=== PATIENT | female | born 1990 | race African-American/Black ===

== ENCOUNTER → 2016-10-19 | Outpatient (CLI) | payer MEDICAID ==
[2016-10-19 14:43] LABS: APPEARANCE,URINE CLEAR; BILIRUBIN,URINE NEGATIVE (NEGATIVE); GLUCOSE, URINE NEGATIVE (NEGATIVE); KETONES,URINE NEGATIVE (NEGATIVE); LEUKOCYTE ESTERASE,URINE NEGATIVE (NEGATIVE); NITRITE,URINE NEGATIVE (NEGATIVE); PROTEIN,URINE >=500 mg/dL (NEGATIVE); UROBILINOGEN,URINE NEGATIVE mg/dL (<2.0)
[2016-10-19 14:49] LABS: ABSOLUTE BASOPHILS # (AUTO) 0.1 10^3/uL (0.0-0.2); ABSOLUTE EOSINOPHILS # (AUTO) 0.4 10^3/uL (0.0-0.6); ABSOLUTE LYMPHOCYTES (AUTO) 2.7 10^3/uL (0.5-4.7); ABSOLUTE MONOCYTES (AUTO) 0.6 10^3/uL (0.1-1.4); BASOPHILS % (AUTO) 0.9 % (0-2); EOSINOPHILS % (AUTO) 4.1 % (0-6); HEMATOCRIT 32.7 % (36.0-47.0); HEMOGLOBIN 10.4 g/dL (12.0-15.5); HGB HCT DIFFERENCE -1.5; LYMPHOCYTES % (AUTO) 30.7 % (13-45); MEAN CORPUSCULAR HEMOGLOBIN 25.7 pg (27.0-33.4); MEAN CORPUSCULAR HGB CONC 31.9 g/dL (32.0-36.0); MEAN CORPUSCULAR VOLUME 81 fl (80-97); MONOCYTES % (AUTO) 7.4 % (3-13); RED BLOOD COUNT 4.06 10^6/uL (3.72-5.28); RED CELL DISTRIBUTION WIDTH 15.9 % (11.5-14.0); SEGMENTED NEUTROPHILS % (AUTO) 56.9 % (42-78); WHITE BLOOD COUNT 8.8 10^3/uL (4.0-10.5)
[2016-10-19 15:10] LABS: ALANINE AMINOTRANSFERASE 22 U/L (9-52); ALBUMIN 4.2 g/dL (3.5-5.0); ALKALINE PHOSPHATASE 127 U/L (38-126); ANION GAP 16 (5-19); ASPARTATE AMINO TRANSFERASE 17 U/L (14-36); BILIRUBIN,TOTAL 0.4 mg/dL (0.2-1.3); BLOOD UREA NITROGEN 27 mg/dL (7-20); CALCIUM 9.3 mg/dL (8.4-10.2); CARBON DIOXIDE 21 mmol/L (22-30); CHLORIDE 105 mmol/L (98-107); GLUCOSE 90 mg/dL (75-110); POTASSIUM 4.7 mmol/L (3.6-5.0); SODIUM 142.3 mmol/L (137-145); TOTAL PROTEIN 7.9 g/dL (6.3-8.2); URIC ACID 10.5 mg/dL (2.5-6.2)
[2016-10-19 15:46] LABS: FERRITIN 9.81 ng/mL (6.2-137.0)
== END ==
LOC: OD 13:17
PROVIDERS: ATTEND Internal Medicine Nephrology
DX: I12.9 Hypertensive chronic kidney disease with stage 1 through stage 4 chronic kidney disease, or unspecified chronic kidney disease (principal); N18.3 Chronic kidney disease, stage 3 (moderate); D64.9 Anemia, unspecified; R80.9 Proteinuria, unspecified
CPT/HCPCS: 36415; 80053; 81001; 82728; 83540; 83550; 84550; 85025; 86038

== ENCOUNTER 2017-04-08 19:37 | Inpatient (IN) | payer MEDICAID ==
[2017-04-08] MEDS ORDERED: LABETALOL HCL INJ 20 MG/4 ML DISP.SYRIN IV ONE ×3 (19:53→20:55)
[2017-04-08] MEDS ORDERED: NORMAL SALINE 1000 ML 1,000 ML IV ONE (19:54)
[2017-04-08] MEDS ORDERED: ONDANSETRON HCL INJ/PF 4 MG/2 ML SDV IV ONE (19:54)
--- NOTE | 2017-04-08 19:55 | ER Document Report ---
ED Cardiac - General Mode of Arrival: Medic Information source: Patient TRAVEL OUTSIDE OF THE [place] IN LAST 30 DAYS: No - HPI Patient complains to provider of: Chest pain Associated symptoms: Other - See above <CHRISTINE SO - Last Filed: 04/08/17 20:15> <JIGAR LEE - Last Filed: 04/08/17 21:41> - General Chief Complaint: Chest Pain Stated Complaint: CHEST PAIN Time Seen by Provider: 04/08/17 19:48 Notes: Patient is a 27 year old female, with a past medical history including hypertension, who presents to the emergency department via EMS complaining of chest pain onset yesterday. Patient reports the pain is more of a pressure and feels like "someone jumping on it". Patient also complains of shortness of breath and vomiting starting this morning around 1000. Patients blood pressure was at 218/104 in exam room and states that she does not take blood pressure medication. Patient's last menstrual cycle was March 18. (CHRISTINE SO) - Related Data Allergies/Adverse Reactions: No Known Allergies Allergy (Verified 07/08/15 11:17) Past Medical History - General Information source: Patient - Social History Smoking Status: Unknown if Ever Smoked Family History: Reviewed & Not Pertinent - Past Medical History Cardiac Medical History: Reports: Hx Hypertension Past Surgical History: Reports: Hx Section - x3 - Immunizations Hx Diphtheria, Pertussis, Tetanus Vaccination: Yes Hx Pneumococcal Vaccination: 09/30/00 <CHRISTINE SO - Last Filed: 04/08/17 20:15> Review of Systems - Review of Systems Constitutional: No symptoms reported EENT: No symptoms reported Cardiovascular: See HPI, Chest pain Respiratory: See HPI, Short of breath Gastrointestinal: See HPI, Vomiting Genitourinary: No symptoms reported Female Genitourinary: No symptoms reported Musculoskeletal: No symptoms reported Skin: No symptoms reported Hematologic/Lymphatic: No symptoms reported Neurological/Psychological: No symptoms reported -: Yes All other systems reviewed and negative <CHRISTINE SO - Last Filed: 04/08/17 20:15> Physical Exam - Vital signs Interpretation: Tachycardic - General General appearance: Appears well, Alert - HEENT Head: Normocephalic, Atraumatic Mucous membranes: Dry - Respiratory Respiratory status: No respiratory distress Chest status: Tender - anterior chest wall tender to palpate Breath sounds: Normal Chest palpation: Normal - Cardiovascular Rhythm: Tachycardia Heart sounds: Normal auscultation Murmur: No - Abdominal Inspection: Obese - Extremities General upper extremity: Normal inspection General lower extremity: Normal inspection - Neurological Neuro grossly intact: Yes Cognition: Normal Orientation: AAOx4 Jesús Coma Scale Eye Opening: Spontaneous Jesús Coma Scale Verbal: Oriented [place] Coma Scale Motor: Obeys Commands [place] Coma Scale Total: 15 Speech: Normal - Psychological Associated symptoms: Normal affect, Normal mood - Skin Skin Temperature: Warm Skin Moisture: Dry Skin Color: Normal <CHRISTINE SO - Last Filed: 04/08/17 20:15> Course - Laboratory Result Diagrams: 04/08/17 20:38 04/08/17 20:38 - EKG Interpretation by [place] EKG shows normal: Sinus rhythm, [place]. abnormal: Intervals - Prolonged QT interval, QRS Complexes, ST-T Waves - Abnormal lateral P waves Rate: Tachycardia - 116 Voltage: Consistant with LVH - Consults Dr. Vidales Time consulted: 21:35 Consulted provider: will come to ER <JIGAR LEE - Last Filed: 04/08/17 21:41> - Laboratory Laboratory results interpreted by me: 04/08/17 04/08/17 20:38 20:38 Hgb 11.0 L Hct 34.1 L MCH 26.2 L RDW 16.9 H Seg Neutrophils % 85.8 H Lymphocytes % 9.4 L Carbon Dioxide 21 L BUN 32 H Creatinine 3.74 H Est GFR ( Amer) 18 L Est GFR (Non-Af Amer) 15 L Glucose 120 H Total Protein 8.3 H Critical Care Note - Critical Care Note Total time excluding time spent on procedures (mins): 35 <JIGAR LEE - Last Filed: 04/08/17 21:41> Discharge <CHRISTINE SO - Last Filed: 04/08/17 20:15> - Discharge Admitting Provider: Hospitalist Unit Admitted: Telemetry <JIGAR LEE - Last Filed: 04/08/17 21:41> - Discharge Clinical Impression: Hypertensive urgency, Chest tightness or pressure Acute on chronic renal failure Qualifiers: Acute renal failure type: unspecified Chronic kidney disease stage: stage 4 ( severe) Qualified Code(s): N17.9 - Acute kidney failure, unspecified; N18.4 - Chronic kidney disease, stage 4 (severe) Nausea and vomiting Qualifiers: Vomiting type: unspecified Vomiting Intractability: non-intractable Qualified Code(s): R11.2 - Nausea with vomiting, unspecified Condition: Good Disposition: ADMITTED INPATIENT Scribe Attestation: 04/08/17 21:41 I personally performed the services described in the documentation, reviewed and edited the documentation which was dictated to the scribe in my presence, and it accurately records my words and actions. (JIGAR LEE) Scribe Documentation - Scribe Written by Laurae:: nataly Villasenor, 04/08/172014 acting as scribe for :: [place] <CHRISTINE SO - Last Filed: 04/08/17 20:15>
[2017-04-08 20:54] LABS: ABSOLUTE LYMPHOCYTES (AUTO) 0.8 10^3/uL (0.5-4.7); ABSOLUTE MONOCYTES (AUTO) 0.4 10^3/uL (0.1-1.4); ABSOLUTE NEUT (AUTO) 7.7 10^3/uL (1.7-8.2); BASOPHILS % (AUTO) 0.5 % (0-2); HEMATOCRIT 34.1 % (36.0-47.0); HGB HCT DIFFERENCE -1.1; LYMPHOCYTES % (AUTO) 9.4 % (13-45); MEAN CORPUSCULAR HEMOGLOBIN 26.2 pg (27.0-33.4); MEAN CORPUSCULAR HGB CONC 32.4 g/dL (32.0-36.0); MEAN CORPUSCULAR VOLUME 81 fl (80-97); MONOCYTES % (AUTO) 4.3 % (3-13); RED BLOOD COUNT 4.22 10^6/uL (3.72-5.28); RED CELL DISTRIBUTION WIDTH 16.9 % (11.5-14.0); SEGMENTED NEUTROPHILS % (AUTO) 85.8 % (42-78)
[2017-04-08 21:11] LABS: ALANINE AMINOTRANSFERASE 16 U/L (9-52); ALBUMIN 3.9 g/dL (3.5-5.0); ALKALINE PHOSPHATASE 117 U/L (38-126); ANION GAP 16 (5-19); ASPARTATE AMINO TRANSFERASE 19 U/L (14-36); BILIRUBIN,DIRECT 0.4 mg/dL (0.0-0.4); BILIRUBIN,TOTAL 0.5 mg/dL (0.2-1.3); BLOOD UREA NITROGEN 32 mg/dL (7-20); CARBON DIOXIDE 21 mmol/L (22-30); CHLORIDE 105 mmol/L (98-107); CREATINE KINASE 124 U/L (30-135); CREATININE RESULT 3.74 mg/dL (0.52-1.25); GLUCOSE 120 mg/dL (75-110); MAGNESIUM 2.1 mg/dL (1.6-2.3); POTASSIUM 3.6 mmol/L (3.6-5.0); SODIUM 141.8 mmol/L (137-145); TOTAL PROTEIN 8.3 g/dL (6.3-8.2)
[2017-04-08 21:22] LABS: CREATINE KINASE MB 1.33 ng/mL (<4.55)
[2017-04-08 21:26] LABS: TROPONIN I 0.153 ng/mL
[2017-04-08] MEDS ORDERED: HYDRALAZINE HCL INJ/PF 20 MG/1 ML SDV IV PRN (21:40)
[2017-04-08] MEDS ORDERED: AMLODIPINE BESYLATE 10 MG TABLET PO ONE (22:30)
[2017-04-08 22:45] LABS: APPEARANCE,URINE SLIGHTLY-CLOUDY; BILIRUBIN,URINE NEGATIVE (NEGATIVE); GLUCOSE, URINE NEGATIVE (NEGATIVE); KETONES,URINE NEGATIVE (NEGATIVE); LEUKOCYTE ESTERASE,URINE NEGATIVE (NEGATIVE); NITRITE,URINE NEGATIVE (NEGATIVE); PROTEIN,URINE >=500 mg/dL (NEGATIVE); UROBILINOGEN,URINE NEGATIVE mg/dL (<2.0)
[2017-04-08] MEDS ORDERED: HYDRALAZINE HCL 50 MG TABLET PO ONE (22:45)
[2017-04-08] MEDS ORDERED: HEPARIN SOD (PORCINE) 5,000 UNIT/ML 1 ML SYRINGE SUBCUT ONE (22:45)
[2017-04-08 22:58] LABS: URINE BARBITURATES SCREEN NEGATIVE; URINE METHADONE SCREEN NEGATIVE; URINE OPIATES LOW NEGATIVE; URINE PHENCYCLIDINE SCREEN NEGATIVE
--- NOTE | 2017-04-09 01:45 | RADIOLOGY REPORT (SQ) ---
EXAM DESCRIPTION: U/S LTD DUPLEX ART/BERNY FLOW COMPLETED DATE/TIME: 04/09/2017 1:06 am REASON FOR STUDY: renal dz w DAKOTAH ? COMPARISON: Ultrasound pelvis, 04/06/2016. TECHNIQUE: Realtime and static grayscale images acquired. Selected color Doppler, velocities and spe ctral images recorded. LIMITATIONS: None. FINDINGS: RIGHT KIDNEY: RENAL ARTERY VELOCITIES: 24 cm/sec. Segmental artery velocity 16 cm/sec. RENAL VEIN: Color doppler flow present, patent. VELOCITY RATIO: 0.3. Normal waveforms. KIDNEY: 8.3 cm. Echogenic kidneys. LEFT KIDNEY: RENAL ARTERY VELOCITIES: 35 cm/sec. Segmental artery velocity 31 cm/sec. RENAL VEIN: Color doppler flow present, patent. VELOCITY RATIO: 0.5. Normal waveforms. KIDNEY: 8.0 cm. Echogenic. IMPRESSION: Increased echogenicity of the kidneys which may indicate chronic medical renal disease. Otherwise, NO DOPPLER EVIDENCE OF HEMODYNAMICALLY SIGNIFICANT RENAL ARTERY STENOSIS. COMMENT: NORMAL RENAL ARTERY/AORTA VELOCITY RATIO IS LESS THAN OR EQUAL TO 3.5. TECHNICAL DOCUMENTATION: JOB ID: [id number]- All Rights Reserved
[2017-04-09 03:15] LABS: CREATINE KINASE MB 1.36 ng/mL (<4.55)
[2017-04-09 03:56] LABS: TROPONIN I 0.182 ng/mL
--- NOTE | 2017-04-09 04:02 | PDOC H&P ---
History of Present Illness Admission Date/PCP: 04/08/17 21:52 MARY ELLEN LAZCANO MD Patient complains of: Headache History of Present Illness: DANE MATTHEW is a 27 year old female with a past medical history of morbid obesity, chronic renal failure and severe hypertension. Patient presents after several hours of headache denying recent change in medications fever chills nausea vomiting. In the emergency room she is found to have a blood pressure of 250/158, acute on chronic renal failure, she started on hydralazine and referred to the hospitalist for admission Past Medical History Cardiac Medical History: Reports: Hypertension Endocrine Medical History: Denies: Diabetes Mellitus Type 2 Psychiatric Medical History: Denies: Depression Past Surgical History Past Surgical History: Reports: Section - x3 Social History Information Source: Patient, [facility] Records Smoking Status: Never Smoker Frequency of Alcohol Use: None Hx Recreational Drug Use: No Drugs: None Hx Prescription Drug Abuse: No - Advance Directive Resuscitation Status: Full Code Family History Family History: DM, Hypertension Parental Family History Reviewed: Yes Children Family History Reviewed: Yes Sibling(s) Family History Reviewed.: Yes Medication/Allergy Home Medications: Aspirin 81 mg PO DAILY 04/08/17 Hydralazine HCl 50 mg PO QID 04/08/17 Labetalol HCl 100 mg PO Q12H 04/08/17 Allergies/Adverse Reactions: No Known Allergies Allergy (Verified 07/08/15 11:17) Review of Systems Constitutional: ABSENT: chills, fever(s), headache(s), weight gain, weight loss Eyes: ABSENT: visual disturbances Ears: ABSENT: hearing changes Cardiovascular: ABSENT: chest pain, dyspnea on exertion, edema, orthropnea, palpitations Respiratory: ABSENT: cough, hemoptysis Gastrointestinal: ABSENT: abdominal pain, constipation, diarrhea, hematemesis, hematochezia, nausea, vomiting Genitourinary: ABSENT: dysuria, hematuria Musculoskeletal: ABSENT: joint swelling Integumentary: ABSENT: rash, wounds Neurological: ABSENT: abnormal gait, abnormal speech, confusion, dizziness, focal weakness, syncope Psychiatric: ABSENT: anxiety, depression, homidical ideation, suicidal ideation Endocrine: ABSENT: cold intolerance, heat intolerance, polydipsia, polyuria Hematologic/Lymphatic: ABSENT: easy bleeding, easy bruising Physical Exam Vital Signs: Temp Pulse Resp BP Pulse Ox 98.3 F 111 H 20 166/98 H 100 04/09/17 01:28 04/09/17 01:29 04/09/17 01:28 04/09/17 01:28 04/09/17 01:28 Intake & Output 04/07/17 04/08/17 04/09/17 11:59 11:59 11:59 Weight 83.6 kg General appearance: PRESENT: no acute distress, well-developed, well-nourished Head exam: PRESENT: atraumatic, normocephalic Eye exam: PRESENT: conjunctiva pink, EOMI, PERRLA. ABSENT: scleral icterus Ear exam: PRESENT: normal external ear exam Mouth exam: PRESENT: moist, tongue midline Neck exam: ABSENT: carotid bruit, JVD, lymphadenopathy, thyromegaly Respiratory exam: PRESENT: clear to auscultation [place]. ABSENT: rales, rhonchi, wheezes Cardiovascular exam: PRESENT: RRR. ABSENT: diastolic murmur, rubs, systolic murmur Pulses: PRESENT: normal dorsalis pedis pul Vascular exam: PRESENT: normal capillary refill GI/Abdominal exam: PRESENT: normal bowel sounds, soft. ABSENT: distended, guarding, mass, organolmegaly, rebound, tenderness Rectal exam: PRESENT: deferred Extremities exam: PRESENT: full ROM. ABSENT: calf tenderness, clubbing, pedal edema Neurological exam: PRESENT: alert, awake, oriented to person, oriented to place , oriented to time, oriented to situation, CN II-XII grossly intact. ABSENT: motor sensory deficit Psychiatric exam: PRESENT: appropriate affect, normal mood. ABSENT: homicidal ideation, suicidal ideation Skin exam: PRESENT: dry, intact, warm. ABSENT: cyanosis, rash Results Laboratory Results: 04/08/17 22:20 Urine Color YELLOW Urine Appearance SLIGHTLY-CLOUDY Urine pH 6.0 Ur Specific [place] 1.010 Urine Protein >=500 H Urine Glucose (UA) NEGATIVE Urine Ketones NEGATIVE Urine Blood NEGATIVE Urine Nitrite NEGATIVE Ur Leukocyte Esterase NEGATIVE Urine WBC (Auto) 2 Urine RBC (Auto) 1 04/09/17 02:41 Creatine Kinase 136 H Impressions: Vascular Ultrasound 04/09/17 00:00 IMPRESSION: Increased echogenicity of the kidneys which may indicate chronic medical renal disease. Otherwise, NO DOPPLER EVIDENCE OF HEMODYNAMICALLY SIGNIFICANT RENAL ARTERY STENOSIS. Assessment & Plan - Diagnosis (1) Hypertensive urgency Is this a current diagnosis for this admission?: YesPlan: Concern for secondary cause such as primary aldosteronism I will obtain a renal artery ultrasound, TSH and aldosterone rennin ratio, initiate hydralazine and Norvasc. I am unclear of the patient's medication and lifestyle compliance (3) Acute on chronic renal failure Qualifiers: Acute renal failure type: unspecified Chronic kidney disease stage: stage 4 (severe) Qualified Code(s): N17.9 - Acute kidney failure, unspecified; N18.9 - Chronic kidney disease, unspecified Is this a current diagnosis for this admission?: YesPlan: Markedly abrupt worsening likely secondary to uncontrolled hypertension renal artery ultrasound pending. Avoiding nephrotoxic meds and doses, gentle IV fluids and a nephrology consultation ordered. Follow-up chemistry and aldosterone rennin ratio - Time Time Spent: 30 to 50 Minutes - Inpatient Certification Medical Necessity: Need Close Monitoring Due to Risk of Patient Decompensation
[2017-04-09] MEDS ORDERED: ACETAMINOPHEN 325 MG TABLET ONE (04:46)
[2017-04-09] MEDS: HYDRALAZINE HCL 50 MG TABLET PO SCH ×3 (05:08→17:59)
[2017-04-09] MEDS: HEPARIN SOD (PORCINE) 5,000 UNIT/ML 1 ML SYRINGE SUBCUT SCH ×3 (05:09→22:26)
[2017-04-09] MEDS ORDERED: ACETAMINOPHEN 325 MG TABLET PO ONE (05:15)
[2017-04-09] MEDS ORDERED: ONDANSETRON HCL INJ/PF 4 MG/2 ML SDV IV PRN (06:17)
--- NOTE | 2017-04-09 07:54 | EKG REPORT ---
SEVERITY:- ABNORMAL ECG - SINUS TACHYCARDIA PROBABLE LEFT VENTRICULAR HYPERTROPHY ABNORMAL T, CONSIDER ISCHEMIA, LATERAL LEADS PROLONGED QT INTERVAL : Confirmed by: Harjinder Kirby MD 09-Apr-2017 07:53:02
[2017-04-09 08:40] LABS: ANION GAP 13 (5-19); BLOOD UREA NITROGEN 32 mg/dL (7-20); CARBON DIOXIDE 20 mmol/L (22-30); CHLORIDE 106 mmol/L (98-107); CHOLESTEROL 237.72 mg/dL (0-200); CREATINE KINASE 127 U/L (30-135); CREATININE RESULT 3.94 mg/dL (0.52-1.25); Direct HDL 63 mg/dL (>40); GLUCOSE 115 mg/dL (75-110); POTASSIUM 3.7 mmol/L (3.6-5.0); SODIUM 139.2 mmol/L (137-145); TRIGLYCERIDES 163 mg/dL (<150)
[2017-04-09 08:50] LABS: DIRECT LDL 140 mg/dL (<100)
[2017-04-09 08:51] LABS: CREATINE KINASE MB 1.94 ng/mL (<4.55); TROPONIN I 0.31 ng/mL
[2017-04-09 09:01] LABS: VLDL CHOLESTEROL 32.6 mg/dL (10-31)
[2017-04-09] MEDS: LABETALOL HCL 200 MG TABLET PO SCH ×2 (09:33→22:26)
[2017-04-09] MEDS: DOCUSATE SODIUM 100 MG CAPSULE PO SCH ×2 (09:34→17:59)
[2017-04-09] MEDS: ASPIRIN 81 MG TABLET, CHEWABLE PO SCH (09:34)
--- NOTE | 2017-04-09 12:35 | PDOC CONSULTATION ---
Consultation Consult Date: 04/09/17 Consult reason:: AK I. CKD stage 3/4. History of Present Illness Admission Date/PCP: 04/08/17 21:52 MARY ELLEN LAZCANO MD History of Present Illness: DANE MATTHEW is a 27 year old female with a past medical history of Chronic hypertension poorly controlled because of severe noncompliance, CKD stage III with base creatinine of between 2 and 3 was not being compliant with follow-ups with me in my office came to the hospital with several hours of headache , shortness of breath. The headache began actually on Saturday and was getting progressive she denies any history of drugs including cocaine. No c/o fever chills nausea vomiting. In the emergency room she is found to have a blood pressure of 250/158, acute on chronic renal failure, she started on hydralazine and Admitted. She has been put on antihypertensives and the blood pressure is a whole lot better. Along with that her symptoms are all resolving very well. She admits to noncompliance and feels rather guilty about this. She has a history of seeing her primary care at [facility] on a very rare basis. She has had issues with in the past during which I had seen her. She also noted to have proteinuria and has refused biopsy. She is a strong family history of hypertension CAD but no history of severe CKD or dialysis.She denies any history of . Her last menstrual period was on 18 March. Past Medical History Cardiac Medical History: Reports: Hypertension-primary Endocrine Medical History: Denies: Diabetes Mellitus Type 2 Renal/ Medical History: Reports: Proteinuria Psychiatric Medical History: Denies: Depression Past Surgical History Past Surgical History: Reports: Section - x3 Social History Smoking Status: Never Smoker Frequency of Alcohol Use: None Hx Recreational Drug Use: No Drugs: None Hx Prescription Drug Abuse: No - Advance Directive Resuscitation Status: Full Code Family History Parental Family History Reviewed: Yes - Positive for hypertension CAD. Negative for CKD/ESRD. Children Family History Reviewed: No Sibling(s) Family History Reviewed.: No Medication/Allergy Home Medications: No Home Medications 04/09/17 Allergies/Adverse Reactions: No Known Allergies Allergy (Verified 07/08/15 11:17) Review of Systems Review of Systems: Constitutional: [PRESENT: as per HPI. ABSENT: chills, fever(s), weight gain, weight loss] Eyes: [ABSENT: visual disturbances] Ears: [ABSENT: hearing changes] Cardiovascular: [ABSENT: edema, orthropnea, palpitations] Respiratory: [ABSENT: cough, hemoptysis] Gastrointestinal: [ABSENT: abdominal pain, constipation, diarrhea, hematemesis, hematochezia, nausea, vomiting] Genitourinary: [ABSENT: dysuria, hematuria] Musculoskeletal: [ABSENT: joint swelling] Integumentary: [ABSENT: rash, wounds] Neurological: [ABSENT: abnormal gait, abnormal speech, confusion, dizziness, focal weakness, syncope] Psychiatric: [ABSENT: anxiety, depression, homicidal ideation, suicidal ideation ] Endocrine: [ABSENT: cold intolerance, heat intolerance, polydipsia, polyuria] Hematologic/Lymphatic: [ABSENT: easy bleeding, easy bruising, lymphadenopathy] Constitutional: PRESENT: headache(s), weakness. ABSENT: anorexia, chills, fever (s) Nose, Mouth, and Throat: PRESENT: headache(s). ABSENT: mouth pain, sore throat Cardiovascular: PRESENT: chest pain, dyspnea on exertion. ABSENT: edema, orthropnea, palpitations Gastrointestinal: ABSENT: abdominal pain, constipation, diarrhea, dysphagia, hematemesis Genitourinary: ABSENT: difficulty urinating, dysuria, hematuria Neurological: ABSENT: abnormal movements, abnormal speech, confusion, focal weakness Endocrine: ABSENT: heat intolerance, menstrual abnormalities Hematologic/Lymphatic: ABSENT: easy bleeding, easy bruising, lymphadenopathy Physical Exam Vital Signs: Temp Pulse Resp BP Pulse Ox 98.3 F 96 16 143/80 H 100 04/09/17 11:37 04/09/17 11:37 04/09/17 11:37 04/09/17 11:37 04/09/17 11:37 Intake & Output 04/08/17 04/09/17 04/10/17 06:59 06:59 06:59 Intake Total 240 Output Total 0 Balance 240 Weight 83.6 kg General appearance: PRESENT: no acute distress Eye exam: PRESENT: conjunctiva pink, EOMI Ear exam: PRESENT: normal external ear exam. ABSENT: bleeding Mouth exam: PRESENT: moist. ABSENT: neck supple Neck exam: ABSENT: lymphadenopathy, meningismus, tenderness, thyromegaly, tracheal deviation Respiratory exam: PRESENT: clear to auscultation [place]. ABSENT: crackles, rhonchi Cardiovascular exam: PRESENT: +S1, +S2 GI/Abdominal exam: PRESENT: normal bowel sounds, soft. ABSENT: organomegaly, renal bruit, tenderness Extremities exam: ABSENT: pedal edema Neurological exam: PRESENT: alert, awake, oriented to person, oriented to place , oriented to time Skin exam: ABSENT: cyanosis, dry, erythema, mottled, rash Results Laboratory Results: 04/09/17 08:10 04/08/17 04/09/17 22:20 08:10 Sodium 139.2 Potassium 3.7 Chloride 106 Carbon Dioxide 20 L Anion Gap 13 BUN 32 H Creatinine 3.94 H Est GFR ( Amer) 17 L Est GFR (Non-Af Amer) 14 L Glucose 115 H Calcium 9.0 Triglycerides 163 H Cholesterol 237.72 H LDL Cholesterol Direct 140 H VLDL Cholesterol 32.6 H HDL Cholesterol 63 Urine Color YELLOW Urine Appearance SLIGHTLY-CLOUDY Urine pH 6.0 Ur Specific [place] 1.010 Urine Protein >=500 H Urine Glucose (UA) NEGATIVE Urine Ketones NEGATIVE Urine Blood NEGATIVE Urine Nitrite NEGATIVE Ur Leukocyte Esterase NEGATIVE Urine WBC (Auto) 2 Urine RBC (Auto) 1 04/09/17 04/09/17 04/09/17 02:41 02:41 08:10 Creatine Kinase 136 H 127 CK-MB (CK-2) 1.36 Troponin I 0.182 04/09/17 08:10 Creatine Kinase CK-MB (CK-2) 1.94 Troponin I 0.310 Impressions: Vascular Ultrasound 04/09/17 00:00 IMPRESSION: Increased echogenicity of the kidneys which may indicate chronic medical renal disease. Otherwise, NO DOPPLER EVIDENCE OF HEMODYNAMICALLY SIGNIFICANT RENAL ARTERY STENOSIS. Assessment & Plan - Diagnosis (1) DIANE (acute kidney injury) Plan: Patient has known to have CKD with a base creatinine between 2 and 3 and has been lost to follow-up in my office. She is extremely noncompliant with her medications in spite of the fact she is known to have hypertension for quite some time.Discussed the implications and consequences of uncontrolled hypertension including strokes heart attacks severe kidney failure and end- stage renal disease and dependent on dialysis.Current status is is likely from her advancing CKD from her uncontrolled hypertension. Currently she is not showing any evidences of uremia or acute indications for renal replacements. Once she has a blood pressure control she has to be discharged and then follow- up with me as an outpatient to see when and how she will need to be going on dialysis. (2) Chronic renal disease, stage IV Plan: Known CKD with a base creatinine between 2 and 3. Unfortunately severe noncompliance and issues with taking medications to control her blood pressure. Her present status could be acute or it could be a progress he was CKD stage III going into for. No indications for renal replacements. Needs to follow-up as an outpatient (3) Chest tightness or pressure Plan: As per hospitalist. She might need risk stratification (4) Hypertensive urgency Is this a current diagnosis for this admission?: YesPlan: Under better control now on current medications. She states she has been on hydralazine and labetalol but has not been taking it for quite some time. Obviously that explains many of present situation. (5) Nausea and vomiting Qualifiers: Vomiting type: unspecified Vomiting Intractability: non-intractable Qualified Code(s): R11.2 - Nausea with vomiting, unspecified
--- NOTE | 2017-04-09 13:50 | PDOC PROGRESS REPORT ---
Subjective Progress Note for:: 04/09/17 Subjective:: Patient has no new complaints. She feels generally better than she did on admission. She still has some chest pressure. Patient denies fever, chills, headache, new focal weakness, shortness of breath, abdominal pain, nausea, vomiting, diarrhea, constipation. Physical Exam Vital Signs: Temp Pulse Resp BP Pulse Ox 98.3 F 96 16 143/80 H 100 04/09/17 11:37 04/09/17 11:37 04/09/17 11:37 04/09/17 11:37 04/09/17 11:37 Intake & Output 04/08/17 04/09/17 04/10/17 06:59 06:59 06:59 Intake Total 240 Output Total 0 Balance 240 Weight 83.6 kg GENERAL: No acute distress HEENT: Conjunctiva clear, nonicteric, moist mucous membranes, no JVD, midline trachea RESPIRATORY: Clear to auscultation bilaterally, no wheezes, no rhonchi CARDIAC: Regular rate and rhythm, no murmurs/gallops/rubs ABDOMEN: Soft, nondistended, nontender, positive bowel sounds, no rebound, no guarding EXTREMETIES: No edema, cyanosis, clubbing NEUROLOGIC: Alert, oriented to person/place/time, CN's grossly intact, no focal deficits SKIN: No rash, wounds PSYCH: Normal mood, normal affect Results Laboratory Results: 04/09/17 08:10 04/08/17 04/09/17 22:20 08:10 Sodium 139.2 Potassium 3.7 Chloride 106 Carbon Dioxide 20 L Anion Gap 13 BUN 32 H Creatinine 3.94 H Est GFR ( Amer) 17 L Est GFR (Non-Af Amer) 14 L Glucose 115 H Calcium 9.0 Triglycerides 163 H Cholesterol 237.72 H LDL Cholesterol Direct 140 H VLDL Cholesterol 32.6 H HDL Cholesterol 63 Urine Color YELLOW Urine Appearance SLIGHTLY-CLOUDY Urine pH 6.0 Ur Specific [place] 1.010 Urine Protein >=500 H Urine Glucose (UA) NEGATIVE Urine Ketones NEGATIVE Urine Blood NEGATIVE Urine Nitrite NEGATIVE Ur Leukocyte Esterase NEGATIVE Urine WBC (Auto) 2 Urine RBC (Auto) 1 04/09/17 04/09/17 04/09/17 02:41 02:41 08:10 Creatine Kinase 136 H 127 CK-MB (CK-2) 1.36 Troponin I 0.182 04/09/17 08:10 Creatine Kinase CK-MB (CK-2) 1.94 Troponin I 0.310 Impressions: Vascular Ultrasound 04/09/17 00:00 IMPRESSION: Increased echogenicity of the kidneys which may indicate chronic medical renal disease. Otherwise, NO DOPPLER EVIDENCE OF HEMODYNAMICALLY SIGNIFICANT RENAL ARTERY STENOSIS. Assessment & Plan - Diagnosis (1) Hypertensive urgency Is this a current diagnosis for this admission?: YesPlan: Patient apparently has not had medication filled in about 1 year. She has been started back on oral labetalol and oral hydralazine. As needed IV hydralazine also ordered. She is being followed by Dr. Mcgrath of nephrology for this as well as chronic kidney disease stage IV. (2) Hypercholesterolemia Is this a current diagnosis for this admission?: YesPlan: Start Lipitor 20 mg nightly. (3) Acute on chronic renal failure Qualifiers: Acute renal failure type: unspecified Chronic kidney disease stage: stage 4 (severe) Qualified Code(s): N17.9 - Acute kidney failure, unspecified; N18.9 - Chronic kidney disease, unspecified Is this a current diagnosis for this admission?: Yes (4) Chronic renal disease, stage IV Is this a current diagnosis for this admission?: Yes (5) Chest tightness or pressure Is this a current diagnosis for this admission?: YesPlan: Likely secondary to uncontrolled hypertension. Troponin slightly elevated however I think this is more related also to uncontrolled hypertension and chronic kidney disease stage IV. (6) Noncompliance Is this a current diagnosis for this admission?: YesPlan: I have talked to patient at length today regarding complaint with antihypertensive regimen given the fact that she has progressed now to stage IV chronic kidney disease will likely progress further to hemodialysis range. I have advised her that this progression can be slowed by maintaining good control of her blood pressure. She acknowledges understanding. - Time Time Spent with patient: 35 or more minutes Anticipated discharge: Home Within: within 24 hours
[2017-04-09 15:55] LABS: CREATINE KINASE MB 2.68 ng/mL (<4.55); TROPONIN I 0.824 ng/mL
[2017-04-09] MEDS: ACETAMINOPHEN 325 MG TABLET PO PRN (16:11)
[2017-04-09] MEDS: BUTALB/ACETAMINOPHEN/CAFFEINE 1 TAB EACH PO PRN (18:52)
[2017-04-09] MEDS: ATORVASTATIN CALCIUM 20 MG TABLET PO SCH (22:25)
[2017-04-10] MEDS: HYDRALAZINE HCL 50 MG TABLET PO SCH ×4 (01:12→22:02)
[2017-04-10] MEDS: HEPARIN SOD (PORCINE) 5,000 UNIT/ML 1 ML SYRINGE SUBCUT SCH ×3 (05:49→21:59)
[2017-04-10 06:00] LABS: ANION GAP 12 (5-19); BLOOD UREA NITROGEN 33 mg/dL (7-20); CALCIUM 8.8 mg/dL (8.4-10.2); CARBON DIOXIDE 21 mmol/L (22-30); CHLORIDE 105 mmol/L (98-107); CREATININE RESULT 4.29 mg/dL (0.52-1.25); GLUCOSE 92 mg/dL (75-110); POTASSIUM 3.8 mmol/L (3.6-5.0); SODIUM 137.8 mmol/L (137-145)
[2017-04-10] MEDS: ACETAMINOPHEN 325 MG TABLET PO PRN (08:30)
--- NOTE | 2017-04-10 09:38 | PDOC PROGRESS REPORT ---
Subjective Progress Note for:: 04/10/17 Subjective:: Patient has no new complaints. She feels generally better than she did on admission. Chest pressure has resolved. Patient denies fever, chills, headache , new focal weakness, shortness of breath, abdominal pain, nausea, vomiting, diarrhea, constipation. Physical Exam Vital Signs: Temp Pulse Resp BP Pulse Ox 98.4 F 106 H 16 168/95 H 100 04/10/17 07:49 04/10/17 07:49 04/10/17 07:49 04/10/17 07:49 04/10/17 07:49 Intake & Output 04/09/17 04/10/17 04/11/17 06:59 06:59 06:59 Intake Total 240 885 Output Total 0 500 Balance 240 385 Weight 83.6 kg 87 kg GENERAL: No acute distress HEENT: Conjunctiva clear, nonicteric, moist mucous membranes, no JVD, midline trachea RESPIRATORY: Clear to auscultation bilaterally, no wheezes, no rhonchi CARDIAC: Regular rate and rhythm, no murmurs/gallops/rubs ABDOMEN: Soft, nondistended, nontender, positive bowel sounds, no rebound, no guarding EXTREMETIES: No edema, cyanosis, clubbing NEUROLOGIC: Alert, oriented to person/place/time, CN's grossly intact, no focal deficits SKIN: No rash, wounds PSYCH: Normal mood, normal affect Results Laboratory Results: 04/10/17 04:51 04/10/17 04:51 Sodium 137.8 Potassium 3.8 Chloride 105 Carbon Dioxide 21 L Anion Gap 12 BUN 33 H Creatinine 4.29 H Est GFR ( Amer) 15 L Est GFR (Non-Af Amer) 12 L Glucose 92 Calcium 8.8 04/09/17 04/09/17 04/09/17 02:41 02:41 08:10 Creatine Kinase 136 H 127 CK-MB (CK-2) 1.36 Troponin I 0.182 04/09/17 04/09/17 04/09/17 08:10 14:53 14:53 Creatine Kinase 119 CK-MB (CK-2) 1.94 2.68 Troponin I 0.310 0.824 Impressions: Vascular Ultrasound 04/09/17 00:00 IMPRESSION: Increased echogenicity of the kidneys which may indicate chronic medical renal disease. Otherwise, NO DOPPLER EVIDENCE OF HEMODYNAMICALLY SIGNIFICANT RENAL ARTERY STENOSIS. Assessment & Plan - Diagnosis (1) Hypertensive urgency Is this a current diagnosis for this admission?: YesPlan: Patient apparently has not had medication filled in about 1 year. Continue labetalol 200 mg twice daily. Decrease hydralazine to 50 mg every 8 hours. Start Norvasc 5 mg daily. As needed IV hydralazine also ordered. Check 24 hour urine metanephrine and catecholamine level. Renal artery ultrasound negative for renal artery stenosis. She is being followed by Dr. Mcgrath of nephrology for this as well as chronic kidney disease stage IV. (2) Hypercholesterolemia Is this a current diagnosis for this admission?: YesPlan: Started Lipitor 20 mg nightly. (3) Acute on chronic renal failure Qualifiers: Acute renal failure type: unspecified Chronic kidney disease stage: stage 4 (severe) Qualified Code(s): N17.9 - Acute kidney failure, unspecified; N18.9 - Chronic kidney disease, unspecified Is this a current diagnosis for this admission?: YesPlan: Dr. Mcgrath of nephrology following. He is advised to follow-up as an outpatient in 2 weeks. Patient needs strict control of hypertension to slow further progression of chronic kidney disease. (4) Chronic renal disease, stage IV Is this a current diagnosis for this admission?: Yes (5) Chest tightness or pressure Is this a current diagnosis for this admission?: YesPlan: Case discussed with Dr. Rios of cardiology. Elevated troponin likely a result of uncontrolled hypertension and advanced chronic kidney disease. CK levels normal. Patient now asymptomatic once blood pressure has been controlled. Dr. Rios did recommend checking echocardiogram. He did not think stress test was warranted. (6) Noncompliance Is this a current diagnosis for this admission?: Yes - Time Time Spent with patient: 35 or more minutes Anticipated discharge: Home Within: within 24 hours
[2017-04-10] MEDS ORDERED: AMLODIPINE BESYLATE 5 MG TABLET PO SCH (10:00)
[2017-04-10] MEDS: ASPIRIN 81 MG TABLET, CHEWABLE PO SCH (10:48)
[2017-04-10] MEDS: DOCUSATE SODIUM 100 MG CAPSULE PO SCH ×2 (10:48→18:09)
[2017-04-10] MEDS: BUTALB/ACETAMINOPHEN/CAFFEINE 1 TAB EACH PO PRN ×2 (10:49→22:02)
[2017-04-10] MEDS: LABETALOL HCL 200 MG TABLET PO SCH ×2 (10:51→22:02)
--- NOTE | 2017-04-10 13:57 | XCELERA REPORT ---
[address] [address] Transthoracic Echocardiogram Report Name: DANE MATTHEW Age: 27 yrs Gender: Female : 1990 Patient Status: Inpatient Patient Location: [id number] Study Date: 04/10/2017 11:11 AM Height: 65 in Weight: 191 lb BSA: 1.9 m2 Procedure: A two-dimensional transthoracic echocardiogram with color flow and Doppler was performed. Study Quality: Fair. Reason For Study: CHEST PAIN / HYPERTENSION History: Chest pain. HTN. Ordering Physician: DANIELLE FENTON Performed By: Lakia Cristobal Interpretation Summary The left ventricle is normal in size. There is moderate concentric left ventricular hypertrophy. LV EF is 60% Left ventricular systolic function is normal. Doppler measurements suggest normal left ventricular diastolic function The left ventricular wall motion is normal. The right ventricle is normal in size and function. The left atrium is mildly dilated. The interatrial septum is intact with no evidence for an atrial septal defect. There is no evidence of mitral valve prolapse. There is no vegetation seen on the mitral valve. There is no mitral valve stenosis. There is a trace amount of mitral regurgitation There is no aortic valve stenosis There is no LVOT obstruction. No aortic regurgitation is present. There is no tricuspid stenosis. There is a trace amount of tricuspid regurgitation Unable to calculate RVSP due to insufficient TR jet. There is no pericardial effusion. MMode/2D Measurements \T\ Calculations RVDd: 2.4 cm LVIDd: 5.0 cmFS: 26.6 % Ao root diam: 2.7 cm IVSd: 1.5 cm LVIDs: 3.7 cmEDV(Teich): 119.1 ml LVPWd: 1.7 cmESV(Teich): 57.5 ml Ao root area: 5.9 cm2 EF(Teich): 51.7 % LVOT diam: 2.0 cm LVOT area: 3.3 cm2 Doppler Measurements \T\ Calculations MV E max dominga: MV dec slope: Ao V2 max: LV V1 max P.4 cm/sec 493.9 cm/sec2 159.0 cm/sec 4.8 mmHg MV A max dominga: MV dec time: Ao max PG: LV V1 max: 85.5 cm/sec 0.24 sec 10.1 mmHg 109.5 cm/sec MV E/A: 1.4 JIM(V,D): 2.3 cm2 PA V2 max: 100.5 cm/sec PA max P.0 mmHg Left Ventricle The left ventricle is normal in size. There is moderate concentric left ventricular hypertrophy. LV EF is 60%. Left ventricular systolic function is normal. Doppler measurements suggest normal left ventricular diastolic function. The left ventricular wall motion is normal. There is no thrombus. There is no ventricular septal defect visualized. Right Ventricle The right ventricle is normal in size and function. Atria The right atrium is normal. The left atrium is mildly dilated. The interatrial septum is intact with no evidence for an atrial septal defect. Mitral Valve There is no evidence of mitral valve prolapse. There is no vegetation seen on the mitral valve. There is no mitral valve stenosis. There is a trace amount of mitral regurgitation. Aortic Valve There is no aortic valvular vegetation. There is no aortic valve stenosis. There is no LVOT obstruction. No aortic regurgitation is present. Tricuspid Valve There is no tricuspid stenosis. There is a trace amount of tricuspid regurgitation. Unable to calculate RVSP due to insufficient TR jet. Pulmonic Valve There is no pulmonic valvular stenosis. There is no pulmonic valvular regurgitation. Great Vessels The aortic root is normal size. Effusions There is no pericardial effusion. : DANIELLE FENTON Lakshmi
--- NOTE | 2017-04-10 15:48 | PDOC PROGRESS REPORT ---
Subjective Progress Note for:: 04/10/17 Subjective:: Saw the patient this morning. She is denying any chest pain shortness of breath. No headaches. Physical Exam Vital Signs: Temp Pulse Resp BP Pulse Ox 98.5 F 93 16 171/106 H 100 04/10/17 11:06 04/10/17 11:06 04/10/17 11:06 04/10/17 11:06 04/10/17 11:06 Intake & Output 04/09/17 04/10/17 04/11/17 06:59 06:59 06:59 Intake Total 240 885 Output Total 0 500 Balance 240 385 Weight 83.6 kg 87 kg General appearance: PRESENT: no acute distress Respiratory exam: PRESENT: clear to auscultation [place]. ABSENT: crackles, rhonchi Cardiovascular exam: PRESENT: +S1, +S2 GI/Abdominal exam: PRESENT: normal bowel sounds, soft. ABSENT: organomegaly, renal bruit, tenderness Results Laboratory Results: 04/10/17 04:51 04/10/17 04:51 Sodium 137.8 Potassium 3.8 Chloride 105 Carbon Dioxide 21 L Anion Gap 12 BUN 33 H Creatinine 4.29 H Est GFR ( Amer) 15 L Est GFR (Non-Af Amer) 12 L Glucose 92 Calcium 8.8 04/09/17 04/09/17 04/09/17 02:41 02:41 08:10 Creatine Kinase 136 H 127 CK-MB (CK-2) 1.36 Troponin I 0.182 04/09/17 04/09/17 04/09/17 08:10 14:53 14:53 Creatine Kinase 119 CK-MB (CK-2) 1.94 2.68 Troponin I 0.310 0.824 Impressions: Vascular Ultrasound 04/09/17 00:00 IMPRESSION: Increased echogenicity of the kidneys which may indicate chronic medical renal disease. Otherwise, NO DOPPLER EVIDENCE OF HEMODYNAMICALLY SIGNIFICANT RENAL ARTERY STENOSIS. Assessment & Plan - Diagnosis (1) DIANE (acute kidney injury) Plan: Relatively stable. She definitely has hypertensive nephropathy and needs to closely watch as an outpatient. Advised patient to follow-up with me in my office in 2 weeks time with him basic chemistries (2) Chronic renal disease, stage IV Is this a current diagnosis for this admission?: Yes (3) Chest tightness or pressure Is this a current diagnosis for this admission?: Yes (4) Hypertensive urgency Is this a current diagnosis for this admission?: YesPlan: Resolved. Blood pressures are more stable. I would not try to get her blood pressure much more regulated until over the period of time. Advised the patient to follow-up with me as an outpatient as mentioned earlier. (5) Nausea and vomiting Qualifiers: Vomiting type: unspecified Vomiting Intractability: non-intractable Qualified Code(s): R11.2 - Nausea with vomiting, unspecified
[2017-04-10] MEDS: ATORVASTATIN CALCIUM 20 MG TABLET PO SCH (22:02)
[2017-04-11] MEDS: BUTALB/ACETAMINOPHEN/CAFFEINE 1 TAB EACH PO PRN ×2 (04:52→22:01)
[2017-04-11 05:19] LABS: ANION GAP 11 (5-19); BLOOD UREA NITROGEN 35 mg/dL (7-20); CALCIUM 8.8 mg/dL (8.4-10.2); CARBON DIOXIDE 22 mmol/L (22-30); CHLORIDE 104 mmol/L (98-107); CREATININE RESULT 4.33 mg/dL (0.52-1.25); GLUCOSE 87 mg/dL (75-110); POTASSIUM 3.7 mmol/L (3.6-5.0); SODIUM 137.3 mmol/L (137-145)
[2017-04-11] MEDS: HEPARIN SOD (PORCINE) 5,000 UNIT/ML 1 ML SYRINGE SUBCUT SCH ×3 (05:34→22:03)
[2017-04-11] MEDS: HYDRALAZINE HCL 50 MG TABLET PO SCH (05:35)
[2017-04-11] MEDS: DOCUSATE SODIUM 100 MG CAPSULE PO SCH ×2 (10:18→17:38)
[2017-04-11] MEDS: ASPIRIN 81 MG TABLET, CHEWABLE PO SCH (10:19)
[2017-04-11] MEDS: AMLODIPINE BESYLATE 10 MG TABLET PO SCH (10:19)
[2017-04-11] MEDS: CLONIDINE HCL 0.1 MG TABLET PO SCH ×2 (10:20→22:01)
[2017-04-11] MEDS: LABETALOL HCL 200 MG TABLET PO SCH ×2 (10:23→22:03)
[2017-04-11] MEDS ORDERED: LORAZEPAM 1 MG TABLET PO PRN ×2 (13:06→14:04)
--- NOTE | 2017-04-11 15:33 | PDOC PROGRESS REPORT ---
Subjective Progress Note for:: 04/11/17 Subjective:: Patient has continued uncontrolled hypertension. She has associated headaches. She is inquiring about going home but I have advised her that it currently is not safe. He denies focal weakness or numbness. She denies chest pain or shortness of breath. Physical Exam Vital Signs: Temp Pulse Resp BP Pulse Ox 98.8 F 101 H 16 172/102 H 100 04/11/17 07:57 04/11/17 07:57 04/11/17 07:57 04/11/17 07:57 04/11/17 07:57 Intake & Output 04/10/17 04/11/17 04/12/17 06:59 06:59 06:59 Intake Total 885 1119 Output Total 500 1000 Balance 385 119 Weight 87 kg 87.6 kg GENERAL: No acute distress HEENT: Conjunctiva clear, nonicteric, moist mucous membranes, no JVD, midline trachea RESPIRATORY: Clear to auscultation bilaterally, no wheezes, no rhonchi CARDIAC: Regular rate and rhythm, no murmurs/gallops/rubs ABDOMEN: Soft, nondistended, nontender, positive bowel sounds, no rebound, no guarding EXTREMETIES: No edema, cyanosis, clubbing NEUROLOGIC: Alert, oriented to person/place/time, CN's grossly intact, no focal deficits SKIN: No rash, wounds PSYCH: Normal mood, normal affect Results Laboratory Results: 04/11/17 04:33 04/11/17 04:33 Sodium 137.3 Potassium 3.7 Chloride 104 Carbon Dioxide 22 Anion Gap 11 BUN 35 H Creatinine 4.33 H Est GFR ( Amer) 15 L Est GFR (Non-Af Amer) 12 L Glucose 87 Calcium 8.8 04/09/17 04/09/17 04/09/17 02:41 02:41 08:10 Creatine Kinase 136 H 127 CK-MB (CK-2) 1.36 Troponin I 0.182 04/09/17 04/09/17 04/09/17 08:10 14:53 14:53 Creatine Kinase 119 CK-MB (CK-2) 1.94 2.68 Troponin I 0.310 0.824 Impressions: Vascular Ultrasound 04/09/17 00:00 IMPRESSION: Increased echogenicity of the kidneys which may indicate chronic medical renal disease. Otherwise, NO DOPPLER EVIDENCE OF HEMODYNAMICALLY SIGNIFICANT RENAL ARTERY STENOSIS. Assessment & Plan - Diagnosis (1) Hypertensive urgency Is this a current diagnosis for this admission?: YesPlan: Patient apparently has not had medication filled in about 1 year. Continue labetalol 200 mg twice daily. Discontinue hydralazine. Increase Norvasc to 10 mg daily. Start clonidine 0.1 mg twice daily. As needed IV hydralazine also ordered. Check 24 hour urine metanephrine and catecholamine level. Renal artery ultrasound negative for renal artery stenosis. She is being followed by Dr. Mcgrath of nephrology for this as well as chronic kidney disease stage IV. (2) Hypercholesterolemia Is this a current diagnosis for this admission?: YesPlan: Started Lipitor 20 mg nightly. (3) Acute on chronic renal failure Qualifiers: Acute renal failure type: unspecified Chronic kidney disease stage: stage 4 (severe) Qualified Code(s): N17.9 - Acute kidney failure, unspecified; N18.9 - Chronic kidney disease, unspecified Is this a current diagnosis for this admission?: Yes (4) Chronic renal disease, stage IV Is this a current diagnosis for this admission?: YesPlan: Dr. Mcgrath of nephrology following. Patient will need to follow-up with nephrology as an outpatient. (5) Chest tightness or pressure Is this a current diagnosis for this admission?: Yes (6) Noncompliance Is this a current diagnosis for this admission?: Yes - Time Time Spent with patient: 25-34 minutes
[2017-04-11] MEDS: ATORVASTATIN CALCIUM 20 MG TABLET PO SCH (22:01)
[2017-04-12] MEDS: HEPARIN SOD (PORCINE) 5,000 UNIT/ML 1 ML SYRINGE SUBCUT SCH (05:07)
[2017-04-12 05:22] LABS: ANION GAP 11 (5-19); BLOOD UREA NITROGEN 37 mg/dL (7-20); CALCIUM 8.7 mg/dL (8.4-10.2); CARBON DIOXIDE 22 mmol/L (22-30); CHLORIDE 104 mmol/L (98-107); CREATININE RESULT 4.23 mg/dL (0.52-1.25); GLUCOSE 84 mg/dL (75-110); POTASSIUM 4.1 mmol/L (3.6-5.0); SODIUM 137.1 mmol/L (137-145)
--- NOTE | 2017-04-12 08:52 | PDOC DISCHARGE SUMMARY ---
General - Admit/Disc Date/PCP Admission Date/Primary Care Provider: 04/08/17 21:52 MARY ELLEN LAZCANO MD Discharge Date: 04/12/17 - Discharge Diagnosis (1) Hypertensive urgency Is this a current diagnosis for this admission?: Yes (2) Chronic renal disease, stage IV Is this a current diagnosis for this admission?: Yes (3) Hypercholesterolemia Is this a current diagnosis for this admission?: Yes (4) Chest tightness or pressure Is this a current diagnosis for this admission?: Yes (5) Noncompliance Is this a current diagnosis for this admission?: Yes - Additional Information Resuscitation Status: Full Code Discharge Diet: Other (Comments) - dialysis Discharge Activity: Activity As Tolerated Home Medications: Amlodipine Besylate [Norvasc 10 mg Tablet] 10 mg PO DAILY #30 tablet 04/12/17 Atorvastatin Calcium [Lipitor 20 mg Tablet] 20 mg PO QHS #30 tablet 04/12/17 Butalb/Acetaminophen/Caffeine [Fioricet (50-325-40 mg) Tablet] 2 tab PO Q6HP PRN #10 each 04/12/17 Clonidine HCl [Catapres 0.1 mg Tablet] 0.1 mg PO Q12 #60 tablet 04/12/17 Labetalol HCl 100 mg PO BID #60 tablet 04/12/17 Lorazepam [Ativan 1 mg Tablet] 1 mg PO Q8HP PRN #30 tablet 04/12/17 History of Present Illness Patient complains of: Headache History of Present Illness: DANE MATTHEW is a 27 year old female with a past medical history of morbid obesity, chronic renal failure and severe hypertension. Patient presents after several hours of headache denying recent change in medications fever chills nausea vomiting. In the emergency room she is found to have a blood pressure of 250/158, acute on chronic renal failure, she started on hydralazine and referred to the hospitalist for admission. Hospital Course Hospital Course: Patient was admitted for hypertensive emergency. She has been noncompliant with outpatient blood pressure medications. She was initially started on hydralazine and eventually this was actually discontinued. Patient has subsequently been started on labetalol, Norvasc, clonidine sequentially to obtain blood pressure control. Blood pressure is relatively stable at time of discharge. Renal artery ultrasound was negative for renal artery stenosis. 24- hour urine collection was obtained for metanephrine, however results are pending at time of discharge. Patient was followed by Dr. Mcgrath of nephrology and will need to follow-up with Dr. Mcgrath in 2 weeks after discharge. Patient had acute on chronic kidney disease stage IV. As mentioned she has been followed by Dr. Mcgrath of nephrology. She currently does not require hemodialysis. I have urged her on multiple occasions the importance of being compliant with her blood pressure regimen to slow the progression of her chronic kidney disease. Patient had chest pressure when her blood pressure was elevated that resolved when blood pressure was controlled. Her troponin was elevated but this was thought to be secondary to chronic kidney disease and uncontrolled hypertension. Echocardiogram showed left ventricular hypertrophy with normal EF. Case was discussed with Dr. Rios of cardiology and he did not feel patient needed a stress test. Physical Exam Vital Signs: Temp Pulse Resp BP Pulse Ox 98.3 F 80 18 155/91 H 99 04/12/17 03:37 04/12/17 07:00 04/12/17 03:37 04/12/17 03:37 04/12/17 03:37 Intake & Output 04/11/17 04/12/17 04/13/17 06:59 06:59 06:59 Intake Total 1119 853 Output Total 1000 800 Balance 119 53 Weight 87.6 kg 92.3 kg GENERAL: No acute distress HEENT: Conjunctiva clear, nonicteric, moist mucous membranes, no JVD, midline trachea RESPIRATORY: Clear to auscultation bilaterally, no wheezes, no rhonchi CARDIAC: Regular rate and rhythm, no murmurs/gallops/rubs ABDOMEN: Soft, nondistended, nontender, positive bowel sounds, no rebound, no guarding EXTREMETIES: No edema, cyanosis, clubbing NEUROLOGIC: Alert, oriented to person/place/time, CN's grossly intact, no focal deficits SKIN: No rash, wounds PSYCH: Normal mood, normal affect Results Laboratory Results: 04/12/17 03:58 04/12/17 03:58 Sodium 137.1 Potassium 4.1 Chloride 104 Carbon Dioxide 22 Anion Gap 11 BUN 37 H Creatinine 4.23 H Est GFR ( Amer) 15 L Est GFR (Non-Af Amer) 13 L Glucose 84 Calcium 8.7 04/09/17 04/09/17 04/09/17 02:41 02:41 08:10 Creatine Kinase 136 H 127 CK-MB (CK-2) 1.36 Troponin I 0.182 04/09/17 04/09/17 04/09/17 08:10 14:53 14:53 Creatine Kinase 119 CK-MB (CK-2) 1.94 2.68 Troponin I 0.310 0.824 Labs- Last Values WBC 9.0 10^3/uL (4.0-10.5) 04/08/17 20:38 RBC 4.22 10^6/uL (3.72-5.28) 04/08/17 20:38 Hgb 11.0 g/dL (12.0-15.5) L 04/08/17 20:38 Hct 34.1 % (36.0-47.0) L 04/08/17 20:38 MCV 81 fl (80-97) 04/08/17 20:38 MCH 26.2 pg (27.0-33.4) L 04/08/17 20:38 MCHC 32.4 g/dL (32.0-36.0) 04/08/17 20:38 RDW 16.9 % (11.5-14.0) H 04/08/17 20:38 Plt Count 323 10^3/uL (150-450) 04/08/17 20:38 Seg Neutrophils % 85.8 % (42-78) H 04/08/17 20:38 Lymphocytes % 9.4 % (13-45) L 04/08/17 20:38 Monocytes % 4.3 % (3-13) 04/08/17 20:38 Eosinophils % 0.0 % (0-6) 04/08/17 20:38 Basophils % 0.5 % (0-2) 04/08/17 20:38 Absolute Neutrophils 7.7 10^3/uL (1.7-8.2) 04/08/17 20:38 Absolute Lymphocytes 0.8 10^3/uL (0.5-4.7) 04/08/17 20:38 Absolute Monocytes 0.4 10^3/uL (0.1-1.4) 04/08/17 20:38 Absolute Eosinophils 0.0 10^3/uL (0.0-0.6) 04/08/17 20:38 Absolute Basophils 0.0 10^3/uL (0.0-0.2) 04/08/17 20:38 Sodium 137.1 mmol/L (137-145) 04/12/17 03:58 Potassium 4.1 mmol/L (3.6-5.0) 04/12/17 03:58 Chloride 104 mmol/L (98-107) 04/12/17 03:58 Carbon Dioxide 22 mmol/L (22-30) 04/12/17 03:58 Anion Gap 11 (5-19) 04/12/17 03:58 BUN 37 mg/dL (7-20) H 04/12/17 03:58 Creatinine 4.23 mg/dL (0.52-1.25) H 04/12/17 03:58 Est GFR ( Amer) 15 (>60) L 04/12/17 03:58 Est GFR (Non-Af Amer) 13 (>60) L 04/12/17 03:58 Glucose 84 mg/dL (75-110) 04/12/17 03:58 Hemoglobin A1c % 4.9 % (4.7-6.0) 04/08/17 21:43 Calcium 8.7 mg/dL (8.4-10.2) 04/12/17 03:58 Magnesium 2.1 mg/dL (1.6-2.3) 04/08/17 20:38 Total Bilirubin 0.5 mg/dL (0.2-1.3) 04/08/17 20:38 Direct Bilirubin 0.4 mg/dL (0.0-0.4) 04/08/17 20:38 Indirect Bilirubin Not Reportable 04/08/17 20:38 Neonat Total Bilirubin Not Reportable 04/08/17 20:38 AST 19 U/L (14-36) 04/08/17 20:38 ALT 16 U/L (9-52) 04/08/17 20:38 Alkaline Phosphatase 117 U/L (38-126) 04/08/17 20:38 Creatine Kinase 119 U/L (30-135) 04/09/17 14:53 CK-MB (CK-2) 2.68 ng/mL (<4.55) 04/09/17 14:53 Troponin I 0.824 ng/mL 04/09/17 14:53 Total Protein 8.3 g/dL (6.3-8.2) H 04/08/17 20:38 Albumin 3.9 g/dL (3.5-5.0) 04/08/17 20:38 Triglycerides 163 mg/dL (<150) H 04/09/17 08:10 Cholesterol 237.72 mg/dL (0-200) H 04/09/17 08:10 LDL Cholesterol Direct 140 mg/dL (<100) H 04/09/17 08:10 VLDL Cholesterol 32.6 mg/dL (10-31) H 04/09/17 08:10 HDL Cholesterol 63 mg/dL (>40) 04/09/17 08:10 TSH 1.51 uIU/mL (0.47-4.68) 04/08/17 21:43 Serum HCG, Qual NEGATIVE (NEGATIVE) 04/08/17 20:38 Urine Color YELLOW 04/08/17 22:20 Urine Appearance SLIGHTLY-CLOUDY 04/08/17 22:20 Urine pH 6.0 (5.0-9.0) 04/08/17 22:20 Ur Specific [place] 1.010 04/08/17 22:20 Urine Protein >=500 mg/dL (NEGATIVE) H 04/08/17 22:20 Urine Glucose (UA) NEGATIVE mg/dL (NEGATIVE) 04/08/17 22:20 Urine Ketones NEGATIVE mg/dL (NEGATIVE) 04/08/17 22:20 Urine Blood NEGATIVE (NEGATIVE) 04/08/17 22:20 Urine Nitrite NEGATIVE (NEGATIVE) 04/08/17 22:20 Urine Bilirubin NEGATIVE (NEGATIVE) 04/08/17 22:20 Urine Urobilinogen NEGATIVE mg/dL (<2.0) 04/08/17 22:20 Ur Leukocyte Esterase NEGATIVE (NEGATIVE) 04/08/17 22:20 Urine WBC (Auto) 2 /HPF 04/08/17 22:20 Urine RBC (Auto) 1 /HPF 04/08/17 22:20 Urine Bacteria (Auto) TRACE /HPF 04/08/17 22:20 Squamous Epi Cells Auto 5 /HPF 04/08/17 22:20 Urine Mucus (Auto) RARE /LPF 04/08/17 22:20 Urine Ascorbic Acid NEGATIVE (NEGATIVE) 04/08/17 22:20 Urine Opiates Screen NEGATIVE 04/08/17 22:20 Urine Methadone Screen NEGATIVE 04/08/17 22:20 Ur Barbiturates Screen NEGATIVE 04/08/17 22:20 Ur Phencyclidine Scrn NEGATIVE 04/08/17 22:20 Ur Amphetamines Screen NEGATIVE 04/08/17 22:20 U Benzodiazepines Scrn NEGATIVE 04/08/17 22:20 Urine Cocaine Screen NEGATIVE 04/08/17 22:20 U Marijuana (THC) Screen NEGATIVE 04/08/17 22:20 Impressions: Vascular Ultrasound 04/09/17 00:00 IMPRESSION: Increased echogenicity of the kidneys which may indicate chronic medical renal disease. Otherwise, NO DOPPLER EVIDENCE OF HEMODYNAMICALLY SIGNIFICANT RENAL ARTERY STENOSIS. Qualifiers PATEINT BEING DISCHARGED WITH ANY OF THE FOLLOWING DIAGNOSIS?: No Plan Time Spent: Less than 30 Minutes
[2017-04-12] MEDS: ASPIRIN 81 MG TABLET, CHEWABLE PO SCH (09:19)
[2017-04-12] MEDS: AMLODIPINE BESYLATE 10 MG TABLET PO SCH (09:20)
[2017-04-12] MEDS: LABETALOL HCL 200 MG TABLET PO SCH (09:20)
[2017-04-12] MEDS: DOCUSATE SODIUM 100 MG CAPSULE PO SCH (09:20)
[2017-04-12] MEDS: CLONIDINE HCL 0.1 MG TABLET PO SCH (09:20)
[2017-04-12 09:32] VITALS: BP 171/100
[2017-04-13 20:19] LABS: NORMETANEPHRINE URINE 509 ug/L (Undefined)
[2017-04-14 10:36] LABS: METANEPHRINE URINE 24HR 158 ug/24 hr (45-290); NORMETANEPHRINE URINE 24HR 764 ug/24 hr (82-500)
[2017-04-16 07:03] LABS: ALDOSTERONE 23.2 ng/dL (0.0-30.0)
[2017-04-17 14:41] LABS: DOPAMINE URINE 66 ug/L (Undefined); EPINEPHRINE URINE 1 ug/L (Undefined); NOREPINEPHRINE URINE 16 ug/L (Undefined); NOREPINEPHRINE URINE 24HR 24 ug/24 hr (0-135)
== END 2017-04-12 12:15 | disposition home or self-care (01) | DRG 305 ==
LOC: ER 19:37 → UNDOADMIN 21:49 → EH 21:49 → 4N 04-09 01:24
PROVIDERS: ADMIT Internal Medicine; ATTEND Internal Medicine
DX: I16.1 Hypertensive emergency (principal); N18.4 Chronic kidney disease, stage 4 (severe); N17.9 Acute kidney failure, unspecified; I12.9 Hypertensive chronic kidney disease with stage 1 through stage 4 chronic kidney disease, or unspecified chronic kidney disease; E66.01 Morbid (severe) obesity due to excess calories; R74.8 Abnormal levels of other serum enzymes; E78.00 Pure hypercholesterolemia, unspecified; Z82.49 Family history of ischemic heart disease and other diseases of the circulatory system; Z68.33 Body mass index [BMI] 33.0-33.9, adult; Z91.19 Patient's noncompliance with other medical treatment and regimen; R80.9 Proteinuria, unspecified
CPT/HCPCS: 36415; 80048; 80053; 80061; 80307; 81001; 82088; 82382; 82550; 82553; 82570; 83036; 83735; 84244; 84443; 84484; 84703; 85025; 93005; 93010; 93306; 93976; 96361; 96374; 96375; 96376; 99291; J1644; J2405; J3490; J7030

== ENCOUNTER 2017-07-03 10:38 | Emergency (ER) | payer MEDICAID ==
[2017-07-03] MEDS ORDERED: LABETALOL HCL 200 MG TABLET PO ONE (10:50)
[2017-07-03] MEDS ORDERED: AMLODIPINE BESYLATE 10 MG TABLET PO ONE (10:51)
--- NOTE | 2017-07-03 10:52 | ER Document Report ---
ED Medical Screen (RME) - General Chief Complaint: Blood Pressure Problem Stated Complaint: BLOOD PRESSURE CONCERNS Time Seen by Provider: 07/03/17 10:48 Mode of Arrival: Ambulatory Information source: Patient TRAVEL OUTSIDE OF THE [place] IN LAST 30 DAYS: No - HPI Patient complains to provider of: High blood pressure Onset: This morning Notes: 07/03/17 10:51 Patient is a 27-year-old female with a history of hypertension and chronic kidney disease who presents to the emergency room this morning with elevated blood pressure and headache, states she had a headache when she woke up this morning, she recently ran out of her amlodipine and labetalol, she continues to take clonidine, she had an episode of chest pain yesterday evening as well, headache is 4 out of 5 today - Related Data Allergies/Adverse Reactions: No Known Allergies Allergy (Verified 07/03/17 10:42) Past Medical History - Social History Chew tobacco use (# tins/day): No Frequency of alcohol use: None Drug Abuse: None - Past Medical History Cardiac Medical History: Reports: Hx Hypertension Neurological Medical History: Denies: Hx Cerebrovascular Accident Endocrine Medical History: Denies: Hx Diabetes Mellitus Type 2 Renal/ Medical History: Denies: Hx Peritoneal Dialysis Psychiatric Medical History: Denies: Hx Depression Past Surgical History: Reports: Hx Section - x3 - Immunizations Hx Diphtheria, Pertussis, Tetanus Vaccination: Yes Physical Exam - Vital signs Vitals: Temp Pulse Resp BP Pulse Ox 97.7 F 87 18 205/140 H 100 07/03/17 10:42 07/03/17 10:42 07/03/17 10:42 07/03/17 10:42 07/03/17 10:42 Course - Vital Signs Vital signs: Temp Pulse Resp BP Pulse Ox 97.7 F 87 18 205/140 H 100 07/03/17 10:42 07/03/17 10:42 07/03/17 10:42 07/03/17 10:42 07/03/17 10:42
[2017-07-03 11:59] LABS: ABSOLUTE BASOPHILS # (AUTO) 0.1 10^3/uL (0.0-0.2); ABSOLUTE EOSINOPHILS # (AUTO) 0.3 10^3/uL (0.0-0.6); ABSOLUTE LYMPHOCYTES (AUTO) 2.8 10^3/uL (0.5-4.7); ABSOLUTE MONOCYTES (AUTO) 0.5 10^3/uL (0.1-1.4); ABSOLUTE NEUT (AUTO) 3.2 10^3/uL (1.7-8.2); BASOPHILS % (AUTO) 0.8 % (0-2); EOSINOPHILS % (AUTO) 4.1 % (0-6); HEMATOCRIT 31.1 % (36.0-47.0); HEMOGLOBIN 10.6 g/dL (12.0-15.5); HGB HCT DIFFERENCE 0.7; LYMPHOCYTES % (AUTO) 41.3 % (13-45); MEAN CORPUSCULAR HEMOGLOBIN 27.3 pg (27.0-33.4); MEAN CORPUSCULAR VOLUME 80 fl (80-97); MONOCYTES % (AUTO) 7.1 % (3-13); RED BLOOD COUNT 3.86 10^6/uL (3.72-5.28); RED CELL DISTRIBUTION WIDTH 15.9 % (11.5-14.0); SEGMENTED NEUTROPHILS % (AUTO) 46.7 % (42-78); WHITE BLOOD COUNT 6.8 10^3/uL (4.0-10.5)
--- NOTE | 2017-07-03 12:08 | RADIOLOGY REPORT (SQ) ---
EXAM DESCRIPTION: CT HEAD WITHOUT COMPLETED DATE/TIME: 07/03/2017 11:54 am REASON FOR STUDY: headache, HTN COMPARISON: None. TECHNIQUE: Axial images acquired through the brain without intravenous contrast. Images reviewed wi th bone, brain and subdural windows. Images stored on PACS. All CT scanners at this facility use dose modulation, iterative reconstruction, and/or weight based d osing when appropriate to reduce radiation dose to as low as reasonably achievable (ALARA). [facility]: Dose Right [facility]: CareDose [facility]: Dose Right [facility]: Teradose 4D [facility]: Pllop.it RADIATION DOSE: Up-to-date CT equipment and radiation dose reduction techniques were employed. CTDIv ol: 64.6 mGy. DLP: 1163 mGy-cm. mGy. LIMITATIONS: None. FINDINGS: VENTRICLES: Normal size and contour. CEREBRUM: No masses. No hemorrhage. No midline shift. No evidence for acute infarction. Normal gra y/white matter differentiation. No areas of low density in the white matter. CEREBELLUM: No masses. No hemorrhage. No alteration of density. No evidence for acute infarction. EXTRAAXIAL SPACES: No fluid collections. No masses. ORBITS AND GLOBE: No intra- or extraconal masses. Normal contour of globe without masses. CALVARIUM: No fracture. PARANASAL SINUSES: No fluid or mucosal thickening. SOFT TISSUES: No mass or hematoma. OTHER: No other significant finding. IMPRESSION: NORMAL BRAIN CT WITHOUT CONTRAST. THERE IS NO HEMORRHAGE. EVIDENCE OF ACUTE STROKE: NO. COMMENT: Quality ID # [id number]: Final reports with documentation of one or more dose reduction techniques (e.g., Automated exposure control, adjustment of the mA and/or kV according to patient size, use of iterative reconstruction technique) TECHNICAL DOCUMENTATION: JOB ID: [id number] [employer]- All Rights Reserved
[2017-07-03] MEDS ORDERED: NORMAL SALINE 1000 ML 1,000 ML IV ONE (12:18)
[2017-07-03] MEDS ORDERED: HYDRALAZINE HCL INJ/PF 20 MG/1 ML SDV IV ONE (12:19)
[2017-07-03 12:22] LABS: APPEARANCE,URINE CLOUDY; BILIRUBIN,URINE NEGATIVE (NEGATIVE); GLUCOSE, URINE NEGATIVE (NEGATIVE); KETONES,URINE NEGATIVE (NEGATIVE); LEUKOCYTE ESTERASE,URINE NEGATIVE (NEGATIVE); NITRITE,URINE NEGATIVE (NEGATIVE); PROTEIN,URINE >=500 mg/dL (NEGATIVE); UROBILINOGEN,URINE NEGATIVE mg/dL (<2.0)
[2017-07-03 12:27] LABS: ALANINE AMINOTRANSFERASE 17 U/L (9-52); ALBUMIN 4.3 g/dL (3.5-5.0); ALKALINE PHOSPHATASE 114 U/L (38-126); ANION GAP 12 (5-19); ASPARTATE AMINO TRANSFERASE 24 U/L (14-36); BILIRUBIN,DIRECT 0.5 mg/dL (0.0-0.4); BILIRUBIN,TOTAL 0.5 mg/dL (0.2-1.3); BLOOD UREA NITROGEN 40 mg/dL (7-20); CALCIUM 9.4 mg/dL (8.4-10.2); CARBON DIOXIDE 27 mmol/L (22-30); CHLORIDE 101 mmol/L (98-107); CREATINE KINASE 140 U/L (30-135); CREATININE RESULT 4.48 mg/dL (0.52-1.25); GLUCOSE 81 mg/dL (75-110); LIPASE 148.7 U/L (23-300); POTASSIUM 3.3 mmol/L (3.6-5.0); SODIUM 140.3 mmol/L (137-145); TOTAL PROTEIN 8.7 g/dL (6.3-8.2)
[2017-07-03] MEDS ORDERED: PROCHLORPERAZINE EDISYLATE INJ 10 MG/2 ML VIAL IV ONE (12:28)
[2017-07-03] MEDS ORDERED: ONDANSETRON HCL INJ/PF 4 MG/2 ML SDV IV ONE (12:28)
[2017-07-03 12:35] LABS: CREATINE KINASE MB 1.35 ng/mL (<4.55)
[2017-07-03 12:44] LABS: TROPONIN I 0.071 ng/mL
--- NOTE | 2017-07-03 13:39 | ER Document Report ---
ED General - General Chief Complaint: Blood Pressure Problem Stated Complaint: BLOOD PRESSURE CONCERNS Time Seen by Provider: 07/03/17 10:48 Mode of Arrival: Ambulatory TRAVEL OUTSIDE OF THE [place] IN LAST 30 DAYS: No - HPI Patient complains to provider of: Elevated blood pressure Notes: Patient has a history of noncompliance with her hypertensive medications. Patient states not had her labetalol or her amlodipine for 1 week patient states she has been taking her clonidine however frontal headache ongoing for proximal and 24 hours patient denies any trauma denies any other neurological complaints. Patient sitting comfortably playing with her child upon my evaluation patient states she has been unable to follow up with any her physicians upon her last visit for hypertensive emergency. 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 Denies any fever chills nausea vomiting diarrhea - Related Data Allergies/Adverse Reactions: No Known Allergies Allergy (Verified 07/03/17 10:42) Past Medical History - General Information source: Patient - Social History Smoking Status: Never Smoker Chew tobacco use (# tins/day): No Frequency of alcohol use: None Drug Abuse: None Family History: DM, Hypertension - Past Medical History Cardiac Medical History: Reports: Hx Hypertension Neurological Medical History: Denies: Hx Cerebrovascular Accident Endocrine Medical History: Denies: Hx Diabetes Mellitus Type 2 Renal/ Medical History: Denies: Hx Peritoneal Dialysis Psychiatric Medical History: Denies: Hx Depression Past Surgical History: Reports: Hx Section - x3 - Immunizations Hx Diphtheria, Pertussis, Tetanus Vaccination: Yes Hx Pneumococcal Vaccination: 09/30/00 Review of Systems - Review of Systems Constitutional: Other - Hypertension headache EENT: No symptoms reported Cardiovascular: No symptoms reported Respiratory: No symptoms reported Gastrointestinal: No symptoms reported Genitourinary: No symptoms reported Female Genitourinary: No symptoms reported Musculoskeletal: No symptoms reported Skin: No symptoms reported Hematologic/Lymphatic: No symptoms reported Neurological/Psychological: No symptoms reported Physical Exam - Vital signs Vitals: Temp Pulse Resp BP Pulse Ox 97.7 F 87 18 205/140 H 100 07/03/17 10:42 07/03/17 10:42 07/03/17 10:42 07/03/17 10:42 07/03/17 10:42 Interpretation: Hypertensive - General General appearance: Appears well, Alert - HEENT Head: Normocephalic, Atraumatic Eyes: Normal Pupils: PERRL - Respiratory Respiratory status: No respiratory distress Chest status: Nontender Breath sounds: Normal Chest palpation: Normal - Cardiovascular Rhythm: Regular Heart sounds: Normal auscultation Murmur: No - Abdominal Inspection: Normal Distension: No distension Bowel sounds: Normal Tenderness: Nontender Organomegaly: No organomegaly - Back Back: Normal, Nontender - Extremities General upper extremity: Normal inspection, Nontender, Normal color, Normal ROM , Normal temperature General lower extremity: Normal inspection, Nontender, Normal color, Normal ROM , Normal temperature, Normal weight bearing. No: Roro's sign - Neurological Neuro grossly intact: Yes Cognition: Normal Orientation: AAOx4 Jes[place]s Coma Scale Eye Opening: Spontaneous [place] Coma Scale Verbal: Oriented Jes[place]s Coma Scale Motor: Obeys Commands [place] Coma Scale Total: 15 Speech: Normal Motor strength normal: LUE, RUE, LLE, RLE Sensory: Normal - Psychological Associated symptoms: Normal affect, Normal mood - Skin Skin Temperature: Warm Skin Moisture: Dry Skin Color: Normal Course - Re-evaluation Re-evalutation: 07/03/17 15:12 Patient coming in lab work otherwise looks stable continues to have chronic renal insufficiency. Headache improved patient's blood pressure did respond to oral therapy and IV therapy. This been time with patient discussing the role again of hypertension or uncontrolled hypertension and progressive renal disease spent with the patient that she continues to not take her medication she can end up on dialysis which was occupied her mornings or afternoons at least 3 times a week. Patient states understanding states that she will be compliant patient states that her issues with follow-up or due to transportation patient does have Medicaid and I did involve our professor of social work to try to establish transportation for the patient's follow-up visits. 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 The patient is neurologically intact. Given the extremely low risk of these diagnoses further testing and evaluation for these possibilities does not appear to be indicated at this time. The patient has been instructed to return if the symptoms worsen or change in any way.. - Vital Signs Vital signs: Temp Pulse Resp BP Pulse Ox 98.3 F 87 26 H 150/93 H 100 07/03/17 14:01 07/03/17 10:42 07/03/17 14:01 07/03/17 14:01 07/03/17 14:01 - Laboratory Result Diagrams: 07/03/17 11:22 07/03/17 11:22 Laboratory results interpreted by me: 07/03/17 07/03/17 07/03/17 11:22 11:22 11:22 Hgb 10.6 L Hct 31.1 L RDW 15.9 H Potassium 3.3 L BUN 40 H Creatinine 4.48 H Est GFR ( Amer) 14 L Est GFR (Non-Af Amer) 12 L Direct Bilirubin 0.5 H Creatine Kinase 140 H Total Protein 8.7 H Urine Protein >=500 H Urine Blood SMALL H Discharge - Discharge Clinical Impression: Chronic renal disease, stage IV, Noncompliance Hypertension Qualifiers: Hypertension type: essential hypertension Qualified Code(s): I10 - Essential ( primary) hypertension Condition: Good Disposition: HOME, SELF-CARE Instructions: High Blood Pressure, Requiring Treatment ([facility]), Kidney Failure ( [facility]) Additional Instructions: Your laboratory studies not show any acute pathology at this time highly recommend she follow-up with your primary care physician return to the ER symptoms worsen. It is very important to follow-up with your primary care for continue monitoring her blood pressure is that you have renal disease. If you continue to have uncontrolled blood pressure issues he will end up on dialysis having to go to a dialysis center 3 times a week. It is very important to take your medication. Prescriptions: Amlodipine Besylate 10 mg PO DAILY #30 tab Clonidine HCl 0.1 mg PO BID #60 tablet Labetalol HCl 100 mg PO BID #60 tablet Forms: Return to Work
[2017-07-03 14:27] VITALS: BP 150/93
--- NOTE | 2017-07-04 09:15 | EKG REPORT ---
SEVERITY:- ABNORMAL ECG - SINUS RHYTHM PROBABLE LEFT ATRIAL ABNORMALITY LEFT AXIS DEVIATION LVH WITH SECONDARY REPOLARIZATION ABNORMALITY PROLONGED QT INTERVAL : Confirmed by: Gavi Rios MD 04-Jul-2017 09:14:55
== END 2017-07-03 14:18 | disposition home or self-care (01) ==
LOC: ER 10:38
DX: I12.9 Hypertensive chronic kidney disease with stage 1 through stage 4 chronic kidney disease, or unspecified chronic kidney disease (principal); N18.4 Chronic kidney disease, stage 4 (severe); T44.8X6A Underdosing of centrally-acting and adrenergic-neuron-blocking agents, initial encounter; T46.1X6A Underdosing of calcium-channel blockers, initial encounter; Z91.128 Patient's intentional underdosing of medication regimen for other reason; Z91.14 Patient's other noncompliance with medication regimen; Z79.899 Other long term (current) drug therapy; R51 Headache
CPT/HCPCS: 93005; 99284; 36415; 82553; 82550; 83690; 84703; 85025; 80053; 81001; 84484; 70450; 93010; J0360; J3490; J0780; J2405; J7030

== ENCOUNTER 2018-02-14 20:09 | Emergency (ER) | payer MEDICAID ==
[2018-02-14] MEDS ORDERED: LABETALOL HCL INJ 20 MG/4 ML DISP.SYRIN IV ONE (20:37)
--- NOTE | 2018-02-14 20:40 | ER Document Report ---
ED Medical Screen (RME) - General Chief Complaint: Shortness Of Breath Stated Complaint: SHORTNESS OF BREATH/BLOOD PRESSURE ISSUE Time Seen by Provider: 02/14/18 20:36 Notes: RAPID MEDICAL EVALUATION DISCLOSURE I have seen this patient as part of a Rapid Medical Evaluation and, if applicable, placed any initially appropriate orders. The patient will be seen and fully evaluated, including a full history and physical exam, by a provider ( in Main ED or Fast Track) when a room becomes available. 27-year-old female PMH CKD hypertension here with complaints of exertional shortness of breath and chest pain as well as BLE swelling over the past 1 week. Her last episode of chest pain was yesterday. She has been taking clonidine 0.1 mg twice daily and has not missed any doses however she has run out of her lisinopril and has not had any for the last 2 weeks. These are the symptoms she usually gets when her blood pressure becomes skyhigh. She does not currently have any chest pain. Denies any prior history of PE DVT. EXAM Alert, conversational Minimal bibasilar rales Tachycardic Bilateral foot swelling TRAVEL OUTSIDE OF THE [place] IN LAST 30 DAYS: No - Related Data Allergies/Adverse Reactions: No Known Allergies Allergy (Verified 07/03/17 10:42) Past Medical History - Social History Chew tobacco use (# tins/day): No Frequency of alcohol use: None Drug Abuse: None - Past Medical History Cardiac Medical History: Reports: Hx Hypertension Neurological Medical History: Denies: Hx Cerebrovascular Accident Endocrine Medical History: Denies: Hx Diabetes Mellitus Type 2 Renal/ Medical History: Denies: Hx Peritoneal Dialysis Psychiatric Medical History: Denies: Hx Depression Past Surgical History: Reports: Hx Section - x3 - Immunizations Hx Diphtheria, Pertussis, Tetanus Vaccination: Yes Physical Exam - Vital signs Vitals: Temp Pulse Resp BP Pulse Ox 98.2 F 125 H 17 239/147 H 100 02/14/18 20:29 02/14/18 20:29 02/14/18 20:29 02/14/18 20:29 02/14/18 20:29 Course - Vital Signs Vital signs: Temp Pulse Resp BP Pulse Ox 98.2 F 125 H 17 239/147 H 100 02/14/18 20:29 02/14/18 20:29 02/14/18 20:29 02/14/18 20:29 02/14/18 20:29
[2018-02-14] MEDS ORDERED: LISINOPRIL 10 MG TABLET PO ONE (20:44)
[2018-02-14] MEDS ORDERED: CLONIDINE HCL 0.2 MG TABLET PO ONE (20:44)
[2018-02-14] MEDS ORDERED: AMLODIPINE BESYLATE 10 MG TABLET PO ONE (21:02)
[2018-02-14] MEDS ORDERED: LABETALOL HCL 200 MG TABLET PO ONE (21:02)
--- NOTE | 2018-02-14 21:05 | ER Document Report ---
ED General - General Chief Complaint: Shortness Of Breath Stated Complaint: SHORTNESS OF BREATH/BLOOD PRESSURE ISSUE Time Seen by Provider: 02/14/18 20:36 Notes: Patient is a 27-year-old female with a past medical history of chronic kidney disease stage IV as well as uncontrolled essential hypertension with a history of noncompliance who presents with complaints of shortness of breath as well as bilateral lower extremity edema worse on the right. Patient reports that her shortness of breath started approximately 3-4 days ago and has gotten progressively worse since onset. She notes that it is worsened by exertion. Nothing improves it. She denies a history of similar symptoms in the past. She states that she became increasingly concerned when she noticed increasing edema to her legs over the past 24 hours which prompted her to come to the emergency department. She admits that she is currently out of amlodipine as well as labetalol which she believes has contributed to her symptoms. She states that she ran out of these medications several days ago and is having difficulty getting back into her doctors due to insurance issues. She denies any chest pain, syncope, abdominal pain, dysuria, or focal weakness or numbness. She has been unable to see her doctor regarding today's concerns. TRAVEL OUTSIDE OF THE [place] IN LAST 30 DAYS: No - Related Data Allergies/Adverse Reactions: No Known Allergies Allergy (Verified 07/03/17 10:42) Past Medical History - General Information source: Patient - Social History Smoking Status: Never Smoker Chew tobacco use (# tins/day): No Frequency of alcohol use: None Drug Abuse: None Lives with: Spouse/Significant other Family History: DM, Hypertension Patient has suicidal ideation: No Patient has homicidal ideation: No - Past Medical History Cardiac Medical History: Reports: Hx Hypertension Neurological Medical History: Denies: Hx Cerebrovascular Accident Endocrine Medical History: Denies: Hx Diabetes Mellitus Type 2 Renal/ Medical History: Denies: Hx Peritoneal Dialysis Psychiatric Medical History: Denies: Hx Depression Past Surgical History: Reports: Hx Section - x3 - Immunizations Hx Diphtheria, Pertussis, Tetanus Vaccination: Yes Hx Pneumococcal Vaccination: 09/30/00 Review of Systems - Review of Systems Notes: Constitutional: Negative for fever. HENT: Negative for sore throat. Eyes: Negative for visual changes. Cardiovascular: Negative for chest pain. Respiratory: Positive for shortness of breath. Gastrointestinal: Negative for abdominal pain, vomiting or diarrhea. Genitourinary: Negative for dysuria. Musculoskeletal: Positive for bilateral lower extremity edema worse on the right per patient report Skin: Negative for rash. Neurological: Negative for headaches, weakness or numbness. 10 point ROS negative except as marked above and in HPI. Physical Exam - Vital signs Vitals: Temp Pulse Resp BP Pulse Ox 98.2 F 125 H 17 239/147 H 100 02/14/18 20:29 02/14/18 20:29 02/14/18 20:29 02/14/18 20:29 02/14/18 20:29 Interpretation: Hypertensive, Tachycardic Notes: PHYSICAL EXAMINATION: GENERAL: Appears mildly uncomfortable but in no overt distress HEAD: Atraumatic, normocephalic. EYES: Pupils equal round and reactive to light, extraocular movements intact, sclera anicteric, conjunctiva are normal. ENT: nares patent, oropharynx clear without exudates. Moderately dry mucous membranes. NECK: Normal range of motion, supple without lymphadenopathy LUNGS: Breath sounds clear to auscultation bilaterally and equal. No wheezes rales or rhonchi. HEART: Regular tachycardia without murmurs ABDOMEN: Soft, nontender, normoactive bowel sounds. No guarding, no rebound. No masses appreciated. EXTREMITIES: Normal range of motion, trace edema that is equal and symmetric in the bilateral lower extremities NEUROLOGICAL: No focal neurological deficits. Moves all extremities spontaneously and on command. PSYCH: Normal mood, normal affect. SKIN: Warm, Dry, normal turgor, no rashes or lesions noted. Course - Re-evaluation Re-evalutation: 02/14/18 21:02 Patient presents with 3 days of progressively worsening shortness of breath as well as 1 day of right lower extremity swelling. On examination the. Patient is overall well in appearance, smiling, appropriate and interactive and appears in no distress. Examination is notable for trace edema that is equal and symmetric in the bilateral lower extremities no significant worsening to the right versus the left. Patient is not visibly tachypneic although is notably tachycardic. Patient admits that she has run out of both labetalol as well as amlodipine in the past 3-4 days and the symptoms started thereafter. It is quite probable that the patient's symptoms are related to her markedly high blood pressure as well as possible beta-jose withdrawal which could account for her tachycardia. However a pulmonary embolus would also be on the differential particularly given her tachycardia and complaint of right versus left swelling and pain. She has no prior history of the same, no major risk factors this diagnoses other than chronic kidney disease. Will proceed with a D -dimer assay test to further evaluate. Obtain a chest x-ray, basic laboratories , provide her normal home oral medications and reassess the patient. Given patient's abnormal vital signs she will require frequent reassessments and may end up requiring IV antihypertensives. She will be reassessed at regular intervals. 02/14/18 22:02 CBC has returned, shows anemia had a transfusion threshold with a normocytic picture consistent with a mixed vitamin deficiency versus possible anemia of chronic disease. Patient denies any rectal bleeding, no evidence of rectal bleeding on examination. Iron studies have been sent. Patient's d-dimer is markedly elevated. Her renal dysfunction precludes obtaining CTA of the chest so I will obtain a ventilation per fusion scan. 2 packed units have been ordered as she is below a infusion threshold. She will require hospitalization given her hypertensive urgency which after oral medications remains at 216 and 144. Awaiting additional laboratories and then will discuss with the hospitalist for admission. She continues to overall be nontoxic in appearance 02/14/18 22:47 Patient's basic metabolic panel has returned and shows findings system with need for dialysis. Patient does not need emergent hemodialysis as her bicarb is 16, potassium is normal, no EKG changes, otherwise nontoxic in appearance and continues to make urine. However I have contacted Dr. Maxime Mcgrath the casino porter on-call with whom the patient follows to discuss the possibility of admission here with placement of a hemodialysis catheter and dialysis. This again would explain why patient has such marketed retention as well as tachycardia. A venous Doppler has been completed for bilateral lower extremities and does not show any evidence of a DVT. A venous Doppler is present pending. Will continue to reassess at regular intervals. 02/14/18 23:29 Dr. Mcgrath has contacted me back and reports that we do not have dialysis available until Saturday. I have therefore contacted [facility] for transfer. I have updated and the patient on all of her lab results and informed her of the need for dialysis. 02/14/18 23:57 I discussed this case with Dr. Jonatan Bolton at [facility] and he has accepted the patient for transfer. Awaiting VQ scan as well as hCG results. Patient remained hemodynamic stable, last blood pressure was 194 on 97. 02/15/18 00:32 Patient has remained markedly hypertensive and given her renal failure likely been secondary to ongoing uncontrolled hypertension. If this fails to improve upon return from VQ scan she will require IV nicardipine 02/15/18 02:32 Patient's blood pressures have overall improved with systolics resting in the low 170s up to 160s without need for nicardipine infusion. 1 unit of packed red blood cells has been transfused. Will continue to monitor closely and will continue withhold nicardipine infusion. - Vital Signs Vital signs: Temp Pulse Resp BP Pulse Ox 98.6 F 97 22 H 174/107 H 99 02/15/18 01:15 02/15/18 01:15 02/15/18 01:31 02/15/18 01:31 02/15/18 01:31 - Laboratory Result Diagrams: 02/14/18 21:38 02/14/18 21:38 Laboratory results interpreted by me: 02/14/18 02/14/18 02/14/18 21:38 21:38 21:38 WBC 11.7 H RBC 2.29 L Hgb 6.6 L Hct 19.2 L RDW 17.1 H Absolute Neutrophils 8.7 H Absolute Eosinophils 0.7 H Retic Count (auto) D-Dimer Carbon Dioxide 16 L Anion Gap 25 H BUN 103 H Creatinine 15.74 H Est GFR ( Amer) 3 L Est GFR (Non-Af Amer) 3 L Glucose 125 H NT-Pro-B Natriuret Pep [id number] H Crossmatch 02/14/18 02/14/18 02/14/18 21:38 21:38 22:10 WBC RBC Hgb Hct RDW Absolute Neutrophils Absolute Eosinophils Retic Count (auto) 3.18 H D-Dimer 3.47 H Carbon Dioxide Anion Gap BUN Creatinine Est GFR ( Amer) Est GFR (Non-Af Amer) Glucose NT-Pro-B Natriuret Pep Crossmatch See Detail - Diagnostic Test Radiology reviewed: Image reviewed, Reports reviewed Radiology results interpreted by me: 02/15/18 02:33 Chest x-ray: No acute infiltrate or pneumothorax - EKG Interpretation by Me Additional EKG results interpreted by me: 02/15/18 02:34 Sinus tachycardia, rate 119. LVH with repolarization abnormalities and a left axis deviation. No ST elevations or depressions. QTC is 485. Critical Care Note - Critical Care Note Total time excluding time spent on procedures (mins): 45 Comments: Critical care time spent obtaining history from patient or surrogate, discussions with consultants, development of treatment plan with patient or surrogate, evaluation of patient's response to treatment, examination of patient , ordering and performing treatments and interventions, ordering and review of laboratory studies, re-evaluation of patient's condition, ordering and review of radiographic studies and review of old charts Discharge - Discharge Clinical Impression: Hypertensive emergency without congestive heart failure, Shortness of breath, Bilateral lower extremity edema Acute on chronic renal failure Qualifiers: Acute renal failure type: unspecified Chronic kidney disease stage: stage 5, not on chronic dialysis Qualified Code(s): N17.9 - Acute kidney failure, unspecified; N18.5 - Chronic kidney disease, stage 5; N18.5 - Chronic kidney disease, stage 5; N18.5 - Chronic kidney disease, stage 5; N18.5 - Chronic kidney disease, stage 5 Condition: Fair Disposition: [facility]
[2018-02-14 21:50] LABS: ABSOLUTE BASOPHILS # (AUTO) 0.1 10^3/uL (0.0-0.2); ABSOLUTE EOSINOPHILS # (AUTO) 0.7 10^3/uL (0.0-0.6); ABSOLUTE LYMPHOCYTES (AUTO) 1.7 10^3/uL (0.5-4.7); ABSOLUTE MONOCYTES (AUTO) 0.5 10^3/uL (0.1-1.4); ABSOLUTE NEUT (AUTO) 8.7 10^3/uL (1.7-8.2); BASOPHILS % (AUTO) 1.2 % (0-2); EOSINOPHILS % (AUTO) 5.7 % (0-6); HEMATOCRIT 19.2 % (36.0-47.0); LYMPHOCYTES % (AUTO) 14.6 % (13-45); MEAN CORPUSCULAR HEMOGLOBIN 28.6 pg (27.0-33.4); MEAN CORPUSCULAR HGB CONC 34.1 g/dL (32.0-36.0); MEAN CORPUSCULAR VOLUME 84 fl (80-97); MONOCYTES % (AUTO) 4.1 % (3-13); PLATELET COUNT 273 10^3/uL (150-450); RED BLOOD COUNT 2.29 10^6/uL (3.72-5.28); RED CELL DISTRIBUTION WIDTH 17.1 % (11.5-14.0); SEGMENTED NEUTROPHILS % (AUTO) 74.4 % (42-78); TOTAL CELLS COUNTED % (AUTO) 100 %; WHITE BLOOD COUNT 11.7 10^3/uL (4.0-10.5)
[2018-02-14 21:52] LABS: HEMOGLOBIN 6.6 g/dL (12.0-15.5)
[2018-02-14] MEDS ORDERED: NORMAL SALINE 250 ML IV PRN (21:59)
--- NOTE | 2018-02-14 22:00 | RADIOLOGY REPORT (SQ) ---
EXAM DESCRIPTION: CHEST SINGLE VIEW COMPLETED DATE/TIME: 02/14/2018 9:52 pm REASON FOR STUDY: CP SOB COMPARISON: 12/21/2015 EXAM PARAMETERS: NUMBER OF VIEWS: One view. TECHNIQUE: Single frontal radiographic view of the chest acquired. RADIATION DOSE: NA LIMITATIONS: None. FINDINGS: LUNGS AND PLEURA: Retrocardiac airspace opacity. Lungs otherwise grossly clear. No defin ite pleural effusion or pneumothorax. MEDIASTINUM AND HILAR STRUCTURES: No masses. Contour normal. HEART AND VASCULAR STRUCTURES: Heart stable in size. Normal vasculature. BONES: No acute findings. HARDWARE: None in the chest. OTHER: No other significant finding. IMPRESSION: RETROCARDIAC AIRSPACE OPACITY COULD REPRESENT SUBSEGMENTAL ATELECTASIS, ASPIRATION, OR P NEUMONIA. TECHNICAL DOCUMENTATION: JOB ID: [id number] [email or web address]- All Rights Reserved Reading location - IP/workstation name: [email or web address]
[2018-02-14 22:07] LABS: BLOOD UREA NITROGEN 103 mg/dL (7-20); CALCIUM 8.5 mg/dL (8.4-10.2); GLUCOSE 125 mg/dL (75-110); POTASSIUM 4.2 mmol/L (3.6-5.0)
[2018-02-14 22:13] LABS: CARBON DIOXIDE 16 mmol/L (22-30); CHLORIDE 101 mmol/L (98-107); SODIUM 141.5 mmol/L (137-145)
[2018-02-14 22:26] LABS: ABSOLUTE RETICS # 0.073 10^6/uL (0.028-0.122); RETICULOCYTE COUNT (AUTO) 3.18 % (0.66-2.85)
[2018-02-14 22:36] LABS: ANION GAP 25 (5-19)
--- NOTE | 2018-02-14 22:44 | EKG REPORT ---
SEVERITY:- ABNORMAL ECG - SINUS TACHYCARDIA LEFT ATRIAL ABNORMALITY LEFT AXIS DEVIATION LVH WITH SECONDARY REPOLARIZATION ABNORMALITY BORDERLINE PROLONGED QT INTERVAL : Confirmed by: Rohit Bhakta 14-Feb-2018 19:43:26
[2018-02-14 22:46] LABS: IRON(TIBC) 42.6 ug/dL (37-170)
[2018-02-14 22:48] LABS: TROPONIN I 0.284 ng/mL
[2018-02-14 23:54] LABS: FOLATE 8.74 ng/mL (>2.76)
[2018-02-15] MEDS ORDERED: NICARDIPINE HCL RTU, ISO-OS 20 MG/200 ML RTUINJ IV PRN (00:32)
--- NOTE | 2018-02-15 00:46 | RADIOLOGY REPORT (SQ) ---
EXAM DESCRIPTION: Nuclear medicine ventilation/perfusion study. CLINICAL HISTORY: 27 years, Female, shortness of breath COMPARISON: None. RADIONUCLIDE AND DOSE: Aerosol administration 5.27 mCi technetium 99m MAA. 32 mCi intravenous administration of technetium 99m DTPA. ADDITIONAL DRUGS AND DOSES: None TECHNIQUE: Ventilation study obtained after the aerosol administration of technetium 99m MAA. Perfusion study obtained in multiple projections following the intravenous administration of technetium 99m DTPA. LIMITATIONS: None. FINDINGS: Equilibrium phase of ventilation study demonstrates no significant segmental ventilation defects. Nuclear medicine perfusion study demonstrates no segmental perfusion defects. No mismatch perfusion defects. IMPRESSION: Normal ventilation/perfusion study. 2010 [employer]- All Rights Reserved
[2018-02-15 03:49] VITALS: BP 151/93
--- NOTE | 2018-02-15 13:10 | XCELERA REPORT ---
[address] [address] Lower Extremity Venous Evaluation Name: DANE MATTHEW Age: 27 yrs Gender: Female : 1990 Patient Status: Emergency Patient Location: ER Study Date: 02/14/2018 10:30 PM Procedure: Color flow and duplex imaging of the veins of the right lower extremity as well as the left Common Femoral vein. Reason For Study: right lower extremity swelling Ordering Physician: MORRO LOZA Performed By: Lakia Cristobal Right Sided Venous Evaluation Normal vessel filling wall to wall, compression and augmentation as well as Colour flow down to the infrageniculate veins. Left Sided Venous Evaluation The left common femoral vein is fully compressible. Spontaneous and phasic flow is present in the left common femoral vein. Interpretation Summary No duplex evidence of DVT or obstruction in the right lower extremity nor in the left Common Femoral vein. : MORRO LOZA > Julian Rodriguez
== END 2018-02-15 04:16 | disposition short-term general hospital (02) ==
LOC: ER 20:09
DX: R06.00 Dyspnea, unspecified (principal); R60.9 Edema, unspecified; R06.02 Shortness of breath; I10 Essential (primary) hypertension; I16.0 Hypertensive urgency; N17.9 Acute kidney failure, unspecified; N18.5 Chronic kidney disease, stage 5
CPT/HCPCS: 93005; 99291; 96365; 96366; 86900; 86901; 36415; 36430; 86850; 82607; 82728; 82746; 83540; 83550; 84703; 85025; 85045; 80048; 84484; 86920; 85379; 83880; 93971 ×2; 71045; 78582; 93010; P9016; A9540; A9567; J3490; Q9969

== ENCOUNTER 2018-05-14 10:51 | Emergency (ER) | payer MEDICARE, MEDICAID ==
[2018-05-14 10:59] VITALS: BP 163/94
[2018-05-14] MEDS ORDERED: HYDROCODONE/ACETAMINOPHEN 5-325 MG TABLET PO ONE (11:38)
--- NOTE | 2018-05-14 11:38 | ER Document Report ---
HPI - HPI Patient complains to provider of: foot pain Onset: Other - 3 days Quality of pain: Achy Pain Level: 5 Context: Patient presents complaining of left posterior heel pain for the past 3 days. Patient denies any injury. Patient states pain improves when she attempts to walk on her toes of the foot. Associated Symptoms: Other - Left foot pain Exacerbated by: Standing, Movement, Walking Relieved by: Other - Putting weight on her toes Similar symptoms previously: No Recently seen / treated by doctor: No - ROS ROS below otherwise negative: Yes Systems Reviewed and Negative: Yes All other systems reviewed and negative - CONSTITUTIONAL Constitutional: DENIES: Fever - NEURO Neurology: DENIES: Weakness - REPRODUCTIVE Reproductive: DENIES: : - MUSCULOSKELETAL Musculoskeletal: REPORTS: Extremity pain - DERM Skin Color: Normal Skin Problems: None - Fluids wonderful Past Medical History - General Information source: Patient - Sugar cookies would cut what cut also to use - Social History Smoking Status: Never Smoker Frequency of alcohol use: None Drug Abuse: None Occupation: none Lives with: Family Family History: DM, Hypertension - Past Medical History Cardiac Medical History: Reports: Hx Hypertension Neurological Medical History: Denies: Hx Cerebrovascular Accident Endocrine Medical History: Denies: Hx Diabetes Mellitus Type 2 Renal/ Medical History: Reports: Hx End Stage Renal Disease, Hx Hemodialysis. Denies: Hx Peritoneal Dialysis Psychiatric Medical History: Denies: Hx Depression Past Surgical History: Reports: Hx Section - x3 - Immunizations Hx Diphtheria, Pertussis, Tetanus Vaccination: Yes Hx Pneumococcal Vaccination: 09/30/00 Vertical Provider Document - CONSTITUTIONAL Agree With Documented VS: Yes Exam Limitations: No Limitations General Appearance: WD/WN, No Apparent Distress - INFECTION CONTROL TRAVEL OUTSIDE OF THE [place] IN LAST 30 DAYS: No - HEENT HEENT: Atraumatic, Normocephalic - NECK Neck: Normal Inspection - RESPIRATORY Respiratory: No Respiratory Distress - CARDIOVASCULAR Pulses: Normal: Dorsalis pedis - MUSCULOSKELETAL/EXTREMETIES Musculoskeletal/Extremeties: MAEW, FROM, Tender - Patient with left foot tenderness over posterior calcaneus, normal skin color and temperature overlying area. Aiken squeeze test. Tenderness is relieved with plantar flexion and increases with dorsiflexion - NEURO Level of Consciousness: Awake, Alert, Appropriate Motor/Sensory: No Motor Deficit - DERM Integumentary: Warm, Dry, No Rash Course - Re-evaluation Re-evalutation: 05/14/18 Patient's foot with normal skin color and temperature, no concern for septic arthritis, fracture or dislocation. Will treat for tendinitis. Patient encouraged to put heel lift in her shoe. - Vital Signs Vital signs: Temp Pulse Resp BP Pulse Ox 98.9 F 85 12 163/94 H 100 05/14/18 10:58 05/14/18 10:58 05/14/18 10:58 05/14/18 10:58 05/14/18 10:58 - Diagnostic Test Radiology reviewed: Image reviewed, Reports reviewed Discharge - Discharge Clinical Impression: Achilles tendinitis Qualifiers: Laterality: left Qualified Code(s): M76.62 - Achilles tendinitis, left leg Condition: Stable Disposition: HOME, SELF-CARE Instructions: Acetaminophen, Tendonitis ([facility]) Additional Instructions: Return immediately for any new or worsening symptoms Followup with your primary care provider, call tomorrow to make a followup appointment You may wear a heel insert to help with discomfort Follow up with orthopedics for further evaluation Prescriptions: Hydrocodone/Acetaminophen [[place] 5-325 Tablet] 1 each PO Q4 PRN #10 tablet PRN Reason: Referrals: [facility] [Provider Group] - Follow up as needed
--- NOTE | 2018-05-14 12:11 | RADIOLOGY REPORT (SQ) ---
EXAM DESCRIPTION: FOOT LEFT COMPLETE COMPLETED DATE/TIME: 05/14/2018 11:59 am REASON FOR STUDY: left posterior foot pain COMPARISON: None. NUMBER OF VIEWS: Three views. TECHNIQUE: AP, lateral and oblique radiographic images acquired of the left foot. LIMITATIONS: None. FINDINGS: MINERALIZATION: Normal. BONES: Plantar calcaneal bone spur. Otherwise, no acute fracture or bony abnormality. JOINTS: No effusions. SOFT TISSUES: No soft tissue swelling. No foreign body. OTHER: No other significant finding. IMPRESSION: No fractures seen. TECHNICAL DOCUMENTATION: JOB ID: [id number] [email or web address]- All Rights Reserved Reading location - IP/workstation name: [email or web address]
== END 2018-05-14 12:58 | disposition home or self-care (01) ==
LOC: ER 10:51
DX: M76.62 Achilles tendinitis, left leg (principal); M79.672 Pain in left foot; I10 Essential (primary) hypertension
CPT/HCPCS: 99283; 73630; A9270

== ENCOUNTER 2018-05-18 00:46 | Emergency (ER) | payer MEDICARE, MEDICAID ==
--- NOTE | 2018-05-18 01:06 | ER Document Report ---
ED General - General Stated Complaint: CHEST PAIN Time Seen by Provider: 05/18/18 00:54 Notes: Patient is a 28 year old female that comes to the ED for chief complaint of chest pain. She states symptoms started about 1 hour prior to arrival while she was at rest, she states she felt shortness of breath with the chest pain, she was given 324 mg of aspirin and 4 sublingual nitroglycerin by EMS in route, she states her symptoms at this time have resolved. She states the pain felt like stabbing in her general mid chest. Symptoms occurred at rest. She denies any current complaints. She denies any vomiting, fever, cough, lower extremity swelling. She is a dialysis patient, Saturday, missed during the day today because of a sick family member, has a history of hypertension on clonidine, hydralazine, and metoprolol, states she is compliant with her blood pressure medications. She denies any recreational drugs, she denies any medical history otherwise. TRAVEL OUTSIDE OF THE [place] IN LAST 30 DAYS: No - Related Data Allergies/Adverse Reactions: No Known Allergies Allergy (Verified 07/03/17 10:42) Past Medical History - General Information source: Patient - Social History Smoking Status: Never Smoker Frequency of alcohol use: None Drug Abuse: None Lives with: Family Family History: DM, Hypertension - Past Medical History Cardiac Medical History: Reports: Hx Hypertension Neurological Medical History: Denies: Hx Cerebrovascular Accident Endocrine Medical History: Denies: Hx Diabetes Mellitus Type 2 Renal/ Medical History: Reports: Hx End Stage Renal Disease, Hx Hemodialysis. Denies: Hx Peritoneal Dialysis Psychiatric Medical History: Denies: Hx Depression Past Surgical History: Reports: Hx Section - x3 - Immunizations Hx Diphtheria, Pertussis, Tetanus Vaccination: Yes Hx Pneumococcal Vaccination: 09/30/00 Review of Systems - Review of Systems Constitutional: No symptoms reported EENT: No symptoms reported Cardiovascular: See HPI Respiratory: See HPI Gastrointestinal: No symptoms reported Genitourinary: No symptoms reported Female Genitourinary: No symptoms reported Musculoskeletal: No symptoms reported Skin: No symptoms reported Hematologic/Lymphatic: No symptoms reported Neurological/Psychological: No symptoms reported Physical Exam - Vital signs Vitals: Pulse Ox 99 05/18/18 01:02 - Notes Notes: GENERAL: Alert, interacts well. No acute distress. HEAD: Normocephalic, atraumatic. EYES: Pupils equal, round, and reactive to light. Extraocular movements intact. ENT: Oral mucosa moist, tongue midline. NECK: Full range of motion. Supple. Trachea midline. LUNGS: Clear to auscultation bilaterally, no wheezes, rales, or rhonchi. No respiratory distress. HEART: Regular rate and rhythm. No murmur ABDOMEN: Soft, non-tender. Non-distended. Bowel sounds present in all 4 quadrants. EXTREMITIES: Moves all 4 extremities spontaneously. No edema, normal radial and dorsalis pedis pulses bilaterally. No cyanosis. BACK: no cervical, thoracic, lumbar midline tenderness. No saddle anesthesia, normal distal neurovascular exam. NEUROLOGICAL: Alert and oriented x3. Normal speech. [cranial nerves II through XII grossly intact]. PSYCH: Normal affect, normal mood. SKIN: Warm, dry, normal turgor. No rashes or lesions noted. Course - Re-evaluation Re-evalutation: EKG borderline tachycardia, no T-wave inversions or ST segment changes in consecutive leads, borderline QTC. Chest x-ray is unremarkable without vascular congestion or concerning abnormality. Patient smiling, talkative, well -appearing on exam. No current symptoms. Atypical symptoms. Troponin indeterminate. Blood pressure is elevated although I suspect this is because she missed dialysis. No lower extremity swelling or shortness of breath. Chemistry as expected, CBC unremarkable. test is negative. Blood pressure did start improving, patient fell asleep, easily aroused, again no complaints on reevaluation. Given hydralazine. Patient has home medicine regimen as well. Second troponin trending up at 0.07. Still indeterminate. Concern because of elevating troponin but with patient's hypertension and poor renal function this could be expected. Very atypical symptoms. Discussed with patient in detail. Recommended we transfer her to [facility] where she can have dialysis and have further cardiac workup. Patient declines, she states that she wants to go home, be seen tomorrow instead with dialysis and have additional tests at that time. She states she will return if she develops any chest pain, shortness of breath, passing out, or any other concerning symptoms. Discussed this with Dr. Mendes. Because of patient's atypical symptoms, clinical picture, and insistent that she will be followed up closely, patient will be discharged with strict return precautions. Patient states satisfaction and agreement. - Vital Signs Vital signs: Temp Pulse Resp BP Pulse Ox 31 H 185/120 H 100 05/18/18 05:01 05/18/18 05:01 05/18/18 05:01 - Laboratory Result Diagrams: 05/18/18 01:20 05/18/18 01:20 Laboratory results interpreted by me: 05/18/18 05/18/18 01:20 01:20 RBC 3.51 L Hgb 10.6 L Hct 32.5 L RDW 17.0 H Carbon Dioxide 17 L Anion Gap 21 H BUN 55 H Creatinine 11.98 H Est GFR ( Amer) 5 L Est GFR (Non-Af Amer) 4 L Glucose 130 H AST 13 L Discharge - Discharge Clinical Impression: Chest pain Qualifiers: Chest pain type: unspecified Qualified Code(s): R07.9 - Chest pain, unspecified Condition: Stable Disposition: HOME, SELF-CARE Additional Instructions: Your workup was nonspecific today. Your blood pressures are elevated, your troponin is still in the indeterminate range, your symptoms are nonspecific. It is possible that your troponin was elevated because of your blood pressure and poor renal functioning although this is not certain. This needs close follow-up. You must return if you have repeated chest pain, passing out, or any other concerning or worsening symptoms. He also need close follow-up to perform dialysis. Continue your medications and return at anytime for any concerning symptoms.
[2018-05-18 01:30] LABS: ABSOLUTE BASOPHILS # (AUTO) 0.1 10^3/uL (0.0-0.2); ABSOLUTE EOSINOPHILS # (AUTO) 0.2 10^3/uL (0.0-0.6); ABSOLUTE LYMPHOCYTES (AUTO) 1.9 10^3/uL (0.5-4.7); ABSOLUTE MONOCYTES (AUTO) 0.7 10^3/uL (0.1-1.4); ABSOLUTE NEUT (AUTO) 3.9 10^3/uL (1.7-8.2); BASOPHILS % (AUTO) 1.3 % (0-2); EOSINOPHILS % (AUTO) 3.3 % (0-6); HEMATOCRIT 32.5 % (36.0-47.0); HEMOGLOBIN 10.6 g/dL (12.0-15.5); LYMPHOCYTES % (AUTO) 28.3 % (13-45); MEAN CORPUSCULAR HEMOGLOBIN 30.1 pg (27.0-33.4); MEAN CORPUSCULAR HGB CONC 32.6 g/dL (32.0-36.0); MEAN CORPUSCULAR VOLUME 92 fl (80-97); MONOCYTES % (AUTO) 9.8 % (3-13); PLATELET COUNT 387 10^3/uL (150-450); RED BLOOD COUNT 3.51 10^6/uL (3.72-5.28); SEGMENTED NEUTROPHILS % (AUTO) 57.3 % (42-78); TOTAL CELLS COUNTED % (AUTO) 100 %; WHITE BLOOD COUNT 6.8 10^3/uL (4.0-10.5)
[2018-05-18 01:45] LABS: ALANINE AMINOTRANSFERASE 10 U/L (9-52); ALBUMIN 4.2 g/dL (3.5-5.0); ALKALINE PHOSPHATASE 118 U/L (38-126); ASPARTATE AMINO TRANSFERASE 13 U/L (14-36); BILIRUBIN,DIRECT 0.4 mg/dL (0.0-0.4); BILIRUBIN,TOTAL 0.4 mg/dL (0.2-1.3); BLOOD UREA NITROGEN 55 mg/dL (7-20); CALCIUM 9.7 mg/dL (8.4-10.2); GLUCOSE 130 mg/dL (75-110); POTASSIUM 4.8 mmol/L (3.6-5.0); TOTAL PROTEIN 7.7 g/dL (6.3-8.2)
[2018-05-18 01:50] LABS: CARBON DIOXIDE 17 mmol/L (22-30); CHLORIDE 102 mmol/L (98-107); SODIUM 140.2 mmol/L (137-145)
[2018-05-18 01:52] LABS: ANION GAP 21 (5-19)
--- NOTE | 2018-05-18 01:53 | RADIOLOGY REPORT (SQ) ---
EXAM DESCRIPTION: XR CHEST 1 VIEW COMPLETED DATE/TME: 05/18/2018 01:01 CLINICAL HISTORY: 28 years Female, chest pain COMPARISON: February 14, 2018 NUMBER OF VIEWS/TECHNIQUE: 1/AP FINDINGS: Adequate lung volume, clear parenchyma, mildly enlarged cardiac silhouette, right jugular double lumen catheter tip at the upper right atrium,; and intact bony thorax. Stable. IMPRESSION: No acute cardiopulmonary findings.
[2018-05-18] MEDS ORDERED: HYDRALAZINE HCL 50 MG TABLET PO ONE (04:40)
[2018-05-18 05:13] VITALS: BP 185/120
--- NOTE | 2018-05-18 08:01 | EKG REPORT ---
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
== END 2018-05-18 05:05 | disposition home or self-care (01) ==
LOC: ER 00:46
DX: R07.9 Chest pain, unspecified (principal); R06.02 Shortness of breath; E11.22 Type 2 diabetes mellitus with diabetic chronic kidney disease; I12.0 Hypertensive chronic kidney disease with stage 5 chronic kidney disease or end stage renal disease; N18.6 End stage renal disease; Z99.2 Dependence on renal dialysis
CPT/HCPCS: 93005; 99285; 36415; 84703; 85025; 80053; 84484; 71045; 93010; A9270

== ENCOUNTER 2018-06-21 23:34 | Emergency (ER) | payer MEDICARE, MEDICAID ==
[2018-06-21 23:49] VITALS: BP 173/102
[2018-06-22] MEDS ORDERED: CEPHALEXIN 500 MG CAPSULE PO ONE (02:08)
--- NOTE | 2018-06-22 02:08 | ER Document Report ---
HPI - HPI Patient complains to provider of: Sore throat Pain Level: 4 Context: Patient is a 28-year-old female that comes to the emergency department for chief complaint of sore throat for the past 2 days. She reports some pain in the front of her neck from her lymph nodes as well. She denies fever. She denies cough, congestion, or any other symptoms. No obvious sick contacts. - REPRODUCTIVE LMP: na Reproductive: DENIES: : Past Medical History - General Information source: Patient - Social History Smoking Status: Never Smoker Frequency of alcohol use: None Drug Abuse: None Lives with: Family Family History: DM, Hypertension - Past Medical History Cardiac Medical History: Reports: Hx Hypertension Neurological Medical History: Denies: Hx Cerebrovascular Accident Endocrine Medical History: Denies: Hx Diabetes Mellitus Type 2 Renal/ Medical History: Reports: Hx End Stage Renal Disease, Hx Hemodialysis. Denies: Hx Peritoneal Dialysis Psychiatric Medical History: Denies: Hx Depression Past Surgical History: Reports: Hx Section - x3 - Immunizations Hx Diphtheria, Pertussis, Tetanus Vaccination: Yes Hx Pneumococcal Vaccination: 09/30/00 Vertical Provider Document - CONSTITUTIONAL General Appearance: WD/WN, No Apparent Distress - INFECTION CONTROL TRAVEL OUTSIDE OF THE [place] IN LAST 30 DAYS: No - HEENT HEENT: Atraumatic, Normocephalic. negative: Normal ENT Exam - Erythema of the posterior pharynx with tonsillitis and tonsillar stone, no obvious exudates, no uvular edema, clear airway. Unremarkable ENT exam otherwise. - NECK Neck: Lymphadenopathy-Left, Lymphadenopathy-Right - RESPIRATORY Respiratory: Breath Sounds Normal, No Respiratory Distress - CARDIOVASCULAR Cardiovascular: Regular Rate, Regular Rhythm - GI/ABDOMEN Gastrointestinal: Abdomen Soft, Abdomen Non-Tender - BACK Back: Normal Inspection - MUSCULOSKELETAL/EXTREMETIES Musculoskeletal/Extremeties: MAEW, FROM, Non-Tender - NEURO Level of Consciousness: Awake, Alert, Appropriate - DERM Integumentary: Warm, Dry, No Rash Course - Re-evaluation Re-evalutation: Patient is a dialysis patient, she is hypertensive, she will be going to dialysis soon she reports, she has no headache, no chest pain, and she states she has not missed dialysis. Patient with evidence of strep pharyngitis with 3 of 4 Centor criteria, offered throat swab but this was declined. No evidence of abscess, no signs of distress. Patient requesting to be treated for strep throat. This was performed. Discussed follow-up and return precautions. Patient states understanding and agreement. - Vital Signs Vital signs: Temp Pulse Resp BP Pulse Ox 98.4 F 81 16 173/102 H 99 06/21/18 23:47 06/21/18 23:47 06/21/18 23:47 06/21/18 23:47 06/21/18 23:47 Discharge - Discharge Clinical Impression: Anterior cervical adenopathy Pharyngitis Qualifiers: Pharyngitis/tonsillitis etiology: unspecified etiology Qualified Code(s): J02.9 - Acute pharyngitis, unspecified Condition: Stable Disposition: HOME, SELF-CARE Additional Instructions: Your evaluation is consistent with strep pharyngitis. We are treating it with an antibiotic course for this. Take as prescribed to completion. Follow-up with primary care. Return if you worsen including difficulty swallowing, spiking fever, or any other concerning or worsening symptoms. Prescriptions: Cephalexin Monohydrate [Keflex 500 mg Capsule] 500 mg PO BID #20 capsule
== END 2018-06-22 03:17 | disposition home or self-care (01) ==
LOC: ER 23:34
DX: J02.0 Streptococcal pharyngitis (principal); J35.8 Other chronic diseases of tonsils and adenoids; R59.0 Localized enlarged lymph nodes; I12.0 Hypertensive chronic kidney disease with stage 5 chronic kidney disease or end stage renal disease; N18.6 End stage renal disease; Z99.2 Dependence on renal dialysis
CPT/HCPCS: 99282; A9270

== ENCOUNTER 2018-10-29 23:04 | Emergency (ER) | payer MEDICARE, MEDICAID ==
[2018-10-29 23:15] VITALS: BP 187/108
[2018-10-30] MEDS ORDERED: HYDROCODONE/ACETAMINOPHEN 5-325 MG (6 TAB/ER DISP) PO PRN (01:10)
[2018-10-30] MEDS ORDERED: AMOXICILLIN TRIHYDRATE 500 MG CAPSULE PO ONE (01:10)
--- NOTE | 2018-10-30 01:12 | ER Document Report ---
ED Oral Problem - General Chief Complaint: Toothache Stated Complaint: TOOTH PAIN Time Seen by Provider: 10/30/18 00:33 Notes: 28-year-old female patient emergency department chief complaint of dental pain. Pain is mostly in the right lower molar area. Has known gingivitis. Has not seen a dentist. Patient has complications of dialysis and hypertension. Has any fever, chills, sweats. No neck pain. No difficulty swallowing. TRAVEL OUTSIDE OF THE [place] IN LAST 30 DAYS: No - HPI Patient complains to provider of: Toothache Severity: Moderate Pain Level: 3 Context: Fractured tooth Associated symptoms: None - Related Data Allergies/Adverse Reactions: No Known Allergies Allergy (Verified 07/03/17 10:42) Past Medical History - General Information source: Patient - Social History Smoking Status: Never Smoker Chew tobacco use (# tins/day): No Frequency of alcohol use: None Drug Abuse: None Family History: DM, Hypertension Patient has suicidal ideation: No Patient has homicidal ideation: No - Past Medical History Cardiac Medical History: Reports: Hx Hypertension Neurological Medical History: Denies: Hx Cerebrovascular Accident Endocrine Medical History: Denies: Hx Diabetes Mellitus Type 2 Renal/ Medical History: Reports: Hx End Stage Renal Disease, Hx Hemodialysis. Denies: Hx Peritoneal Dialysis Psychiatric Medical History: Denies: Hx Depression Past Surgical History: Reports: Hx Section - x3 - Immunizations Hx Diphtheria, Pertussis, Tetanus Vaccination: Yes Hx Pneumococcal Vaccination: 09/30/00 Review of Systems - Review of Systems Constitutional: denies: Fever, Malaise, Weakness EENT: Dental problem. denies: Throat pain, Difficulty swallowing Cardiovascular: denies: Chest pain, Palpitations, Heart racing Respiratory: denies: Cough, Hurts to breathe, Short of breath, Wheezing Neurological/Psychological: denies: Confusion, Weakness, Headaches, Numbness Physical Exam - Vital signs Vitals: Temp Pulse Resp BP Pulse Ox 98 F 93 20 187/108 H 100 10/29/18 23:13 10/29/18 23:13 10/29/18 23:13 10/29/18 23:13 10/29/18 23:13 Interpretation: Hypertensive - HEENT Head: Normocephalic Teeth diagram: 1 - Dental caries, dental fractures, bleeding gums Neck: Normal - Respiratory Respiratory status: No respiratory distress Chest status: Nontender Breath sounds: Normal Chest palpation: Normal - Cardiovascular Rhythm: Regular Heart sounds: Normal auscultation Murmur: No - Extremities General upper extremity: Normal inspection, Nontender, Normal color, Normal ROM, Normal temperature, Other - thrill and bruit in the left upper extremity General lower extremity: Normal inspection, Nontender, Normal color, Normal ROM, Normal temperature, Normal weight bearing. No: Roro's sign Course - Re-evaluation Re-evalutation: 10/30/18 03:11 We will start patient on antibiotics. We will give her some pain medications. I have advised to use an uvyp-pyt-qnumrbk cetylPyridium mouthwash to help with the gingivitis. - Vital Signs Vital signs: Temp Pulse Resp BP Pulse Ox 99 F 82 18 187/108 H 99 10/30/18 01:24 10/30/18 01:24 10/30/18 01:24 10/29/18 23:13 10/30/18 01:24 Discharge - Discharge Clinical Impression: Dental caries Condition: Good Disposition: HOME, SELF-CARE Instructions: [facility], Oral Narcotic Medication ([facility]), Toothache ([facility]) Additional Instructions: Follow-up with a dentist as soon as possible. Return for any worsening symptoms or concerns. Prescriptions: Amoxicillin Trihydrate [Amoxil 500 mg Capsule] 500 mg PO TID 7 Days #21 capsule
== END 2018-10-30 01:26 | disposition home or self-care (01) ==
LOC: ER 23:04
DX: K02.9 Dental caries, unspecified (principal); I12.0 Hypertensive chronic kidney disease with stage 5 chronic kidney disease or end stage renal disease; N18.6 End stage renal disease; Z99.2 Dependence on renal dialysis
CPT/HCPCS: 99282; A9270 ×2

== ENCOUNTER 2018-12-29 14:57 | Emergency (ER) | payer MEDICARE, MEDICAID ==
--- NOTE | 2018-12-29 16:10 | RADIOLOGY REPORT (SQ) ---
EXAM DESCRIPTION: CT HEAD WITHOUT COMPLETED DATE/TIME: 12/29/2018 4:02 pm REASON FOR STUDY: allen COMPARISON: 07/03/2017. TECHNIQUE: Axial images acquired through the brain without intravenous contrast. Images reviewed wi th bone, brain and subdural windows. Additional sagittal and coronal reconstructions were generated. Images stored on PACS. All CT scanners at this facility use dose modulation, iterative reconstruction, and/or weight based d osing when appropriate to reduce radiation dose to as low as reasonably achievable (ALARA). [facility]: Dose Right [facility]: CareDose [facility]: Dose Right [facility]: Teradose 4D [facility]: [employer] RADIATION DOSE: CT Rad equipment meets quality standard of care and radiation dose reduction techniq ues were employed. CTDIvol: 53.2 mGy. DLP: 964 mGy-cm. mGy. LIMITATIONS: None. FINDINGS: VENTRICLES: Normal size and contour. CEREBRUM: No masses. No hemorrhage. No midline shift. No evidence for acute infarction. Normal gra y/white matter differentiation. No areas of low density in the white matter. CEREBELLUM: No masses. No hemorrhage. No alteration of density. No evidence for acute infarction. EXTRAAXIAL SPACES: No fluid collections. No masses. ORBITS AND GLOBE: No intra- or extraconal masses. Normal contour of globe without masses. CALVARIUM: No fracture. PARANASAL SINUSES: No fluid or mucosal thickening. SOFT TISSUES: No mass or hematoma. OTHER: No other significant finding. IMPRESSION: NORMAL BRAIN CT WITHOUT CONTRAST. EVIDENCE OF ACUTE STROKE: NO. COMMENT: Quality ID # [id number]: Final reports with documentation of one or more dose reduction techniques (e.g., Automated exposure control, adjustment of the mA and/or kV according to patient size, use of iterative reconstruction technique) TECHNICAL DOCUMENTATION: JOB ID: [id number] [employer]- All Rights Reserved Reading location - IP/workstation name: [email or web address]
--- NOTE | 2018-12-29 16:20 | RADIOLOGY REPORT (SQ) ---
EXAM DESCRIPTION: CHEST SINGLE VIEW COMPLETED DATE/TIME: 12/29/2018 4:08 pm REASON FOR STUDY: fever, allen COMPARISON: 12/21/2015. NUMBER OF VIEWS: One view. TECHNIQUE: Single frontal radiographic view of the chest acquired. LIMITATIONS: None. FINDINGS: LUNGS AND PLEURA: No opacities, masses or pneumothorax. No pleural effusion. MEDIASTINUM AND HILAR STRUCTURES: No masses. Contour normal. HEART AND VASCULAR STRUCTURES: Heart enlarged without failure. Normal vasculature. BONES: No acute findings. HARDWARE: None in the chest. OTHER: No other significant finding. IMPRESSION: HEART ENLARGED WITHOUT FAILURE. NO OTHER SIGNIFICANT RADIOGRAPHIC FINDING IN THE CHEST. TECHNICAL DOCUMENTATION: JOB ID: [id number] [employer]- All Rights Reserved Reading location - IP/workstation name: [email or web address]
[2018-12-29] MEDS ORDERED: LABETALOL HCL INJ 20 MG/4 ML DISP.SYRIN IV ONE (17:34)
[2018-12-29 17:47] LABS: APPEARANCE ALL TUBES CLEAR; COLOR ALL TUBES COLORLESS; CSF TUBE NUMBER 1; VOLUME TUBE 2 1.5 CC; VOLUME TUBE 4 2.5 CC
[2018-12-29 17:48] LABS: RED BLOOD CELL,CSF 114 /uL (0-10)
[2018-12-29 17:49] LABS: APPEARANCE ALL TUBES CLEAR; COLOR ALL TUBES COLORLESS; CSF TUBE NUMBER 4; VOLUME TUBE 2 1.5 CC; VOLUME TUBE 4 2.5 CC; WHITE BLOOD CELL,CSF 1 /uL (0-5)
[2018-12-29 17:50] LABS: RED BLOOD CELL,CSF 11 /uL (0-10); WHITE BLOOD CELL,CSF 0 /uL (0-5)
[2018-12-29 18:02] LABS: GLUCOSE,CSF 56 mg/dL (40-70); PROTEIN,CSF 23 mg/dL (12-60)
[2018-12-29 18:22] LABS: A TYPE INFLUENZA AG NEGATIVE (NEGATIVE); B INFLUENZA AG NEGATIVE (NEGATIVE)
[2018-12-29] MEDS ORDERED: HYDRALAZINE HCL INJ/PF 20 MG/1 ML SDV IV ONE (18:22)
[2018-12-29 18:51] LABS: ABSOLUTE EOSINOPHILS # (AUTO) 0.1 10^3/uL (0.0-0.6); ABSOLUTE LYMPHOCYTES (AUTO) 1.1 10^3/uL (0.5-4.7); ABSOLUTE MONOCYTES (AUTO) 0.9 10^3/uL (0.1-1.4); ABSOLUTE NEUT (AUTO) 4.4 10^3/uL (1.7-8.2); BASOPHILS % (AUTO) 0.4 % (0-2); HEMATOCRIT 34.4 % (36.0-47.0); HEMOGLOBIN 11.7 g/dL (12.0-15.5); MEAN CORPUSCULAR HEMOGLOBIN 33.3 pg (27.0-33.4); MEAN CORPUSCULAR VOLUME 98 fl (80-97); MONOCYTES % (AUTO) 13.2 % (3-13); PLATELET COUNT 364 10^3/uL (150-450); RED BLOOD COUNT 3.51 10^6/uL (3.72-5.28); SEGMENTED NEUTROPHILS % (AUTO) 68.4 % (42-78); TOTAL CELLS COUNTED % (AUTO) 100 %; WHITE BLOOD COUNT 6.5 10^3/uL (4.0-10.5)
[2018-12-29] MEDS ORDERED: METOCLOPRAMIDE HCL INJ/PF 10 MG/2 ML SDV IV ONE (18:57)
[2018-12-29] MEDS ORDERED: DIPHENHYDRAMINE HCL 50 MG/ML VIAL IV ONE (18:58)
[2018-12-29] MEDS ORDERED: HYDRALAZINE HCL 50 MG TABLET PO ONE (19:02)
[2018-12-29] MEDS ORDERED: CLONIDINE HCL 0.1 MG TABLET PO ONE (19:02)
[2018-12-29] MEDS ORDERED: LABETALOL HCL 200 MG TABLET PO ONE (19:02)
[2018-12-29 19:12] LABS: ALANINE AMINOTRANSFERASE 14 U/L (9-52); ALBUMIN 4.6 g/dL (3.5-5.0); ALKALINE PHOSPHATASE 93 U/L (38-126); ANION GAP 13 (5-19); ASPARTATE AMINO TRANSFERASE 36 U/L (14-36); BILIRUBIN,DIRECT 0.7 mg/dL (0.0-0.4); BILIRUBIN,TOTAL 0.7 mg/dL (0.2-1.3); BLOOD UREA NITROGEN 16 mg/dL (7-20); CALCIUM 9.1 mg/dL (8.4-10.2); CARBON DIOXIDE 27 mmol/L (22-30); CHLORIDE 94 mmol/L (98-107); GLUCOSE 96 mg/dL (75-110); POTASSIUM 4.6 mmol/L (3.6-5.0); TOTAL PROTEIN 9.2 g/dL (6.3-8.2)
--- NOTE | 2018-12-29 19:23 | RADIOLOGY REPORT (SQ) ---
EXAM DESCRIPTION: LUMBAR PUNCTURE; FLUORO/NEEDLE PLACEMENT/SPINE COMPLETED DATE/TIME: 12/29/2018 5:27 pm REASON FOR STUDY: moseley, fever; MOSELEY, FEVER COMPARISON: None. FLUOROSCOPY TIME: 12 seconds 3 digital fluoroscopic images saved to PACS. TECHNIQUE: Fluoroscopic guided lumbar puncture. LIMITATIONS: None. PROCEDURE: After written consent and assessment were obtained, the patient was brought into the fluo roscopy room and placed prone on the table. The patient's lower back was prepped in a sterile fashio n and an entry site was selected under live fluoroscopic guidance. The entry site was anesthetized wi th 4 mL of 1% lidocaine. A 22 gauge needle was advanced through the skin and into the thecal sac at t he right paracentral L3-4 level. After approximately 7.5 ml was drained, the needle was removed and a sterile bandage was placed of the site. Specimens were sent to the lab for testing. A fluoroscopi c spot image was saved to PACS confirming level access. FINDINGS: Clear CSF, opening pressure 15 cm of water. CSF studies are pending. IMPRESSION: Lumbar puncture under fluoroscopy. No immediate complication. COMMENT: Patient medication list reviewed: Yes- Quality ID# [id number]:Eligible professional attests to doc umenting in the medical record they obtained, updated, or reviewed the patient's current medications. . Quality ID 145: Final reports for procedures using fluoroscopy that document radiation exposure lottie sal, or exposure time and number of fluorographic images (if radiation exposure indices are not avail able) TECHNICAL DOCUMENTATION: JOB ID: [id number] [employer]- All Rights Reserved Reading location - IP/workstation name: [email or web address]
--- NOTE | 2018-12-29 19:41 | EKG REPORT ---
SEVERITY:- ABNORMAL ECG - SINUS TACHYCARDIA LEFT ATRIAL ABNORMALITY LEFT ANTERIOR FASCICULAR BLOCK LVH WITH SECONDARY REPOLARIZATION ABNORMALITY PROLONGED QT INTERVAL : Confirmed by: Harjinder Kirby MD 29-Dec-2018 19:40:16
--- NOTE | 2018-12-29 20:23 | ER Document Report ---
ED General - General Chief Complaint: Fever Stated Complaint: FEVER,CHILLS,HEADACHE Time Seen by Provider: 12/29/18 15:49 Primary Care Provider: JASON BOOTH DO [Primary Care Provider] - Follow up tomorrow Mode of Arrival: Ambulatory Information source: Patient Notes: This is a 28-year-old female with a history of hypertension, end-stage renal disease (hemodialysis) who was sent over from dialysis because of fever, headache, chills. Patient does state that she has had a lot of body aches, along with the fever and headache. She was given IV antibiotics at the end of her dialysis today (vancomycin and Fortaz). Currently, she states her headache is much better. She denies any photophobia. She denies any neck stiffness. TRAVEL OUTSIDE OF THE [place] IN LAST 30 DAYS: No - HPI Onset: Yesterday Onset/Duration: Gradual Quality of pain: Dull Severity: Moderate Pain Level: 2 Associated symptoms: Fever, Other. denies: Chest pain, Shortness of breath Exacerbated by: Denies Relieved by: Denies Similar symptoms previously: No Recently seen / treated by doctor: Yes - Related Data Allergies/Adverse Reactions: No Known Allergies Allergy (Verified 12/29/18 14:59) Past Medical History - General Information source: Patient - Social History Smoking Status: Never Smoker Cigarette use (# per day): No Chew tobacco use (# tins/day): No Frequency of alcohol use: None Drug Abuse: None Lives with: Family Family History: DM, Hypertension Patient has suicidal ideation: No Patient has homicidal ideation: No - Past Medical History Cardiac Medical History: Reports: Hx Hypertension Neurological Medical History: Denies: Hx Cerebrovascular Accident Endocrine Medical History: Denies: Hx Diabetes Mellitus Type 2 Renal/ Medical History: Reports: Hx End Stage Renal Disease, Hx Hemodialysis. Denies: Hx Peritoneal Dialysis Psychiatric Medical History: Denies: Hx Depression Past Surgical History: Reports: Hx Section - x3 - Immunizations Hx Diphtheria, Pertussis, Tetanus Vaccination: Yes Hx Pneumococcal Vaccination: 09/30/00 Review of Systems - Review of Systems Constitutional: Chills, Fever EENT: denies: Blurred vision, Nose congestion, Nose discharge, Throat swelling Cardiovascular: denies: Chest pain, Palpitations, Heart racing, Dizziness, Lightheaded Respiratory: denies: Cough, Short of breath Gastrointestinal: denies: Abdomen distended, Abdominal pain, Diarrhea, Nausea Genitourinary: No symptoms reported Female Genitourinary: No symptoms reported Musculoskeletal: No symptoms reported Skin: No symptoms reported Hematologic/Lymphatic: No symptoms reported Neurological/Psychological: See HPI Physical Exam - Vital signs Vitals: Pulse Ox 98 12/29/18 14:58 Notes: Physical exam: GENERAL: Patient is alert and oriented x3, she states she feels much better. She is in no acute distress. She is hypertensive with a blood pressure of 200/115. Her temperature was 100.5 in triage. Her current pulse is 110. Her respiratory rate is 14. Her oxygen saturation on room air is 95%. HEAD: Atraumatic, normocephalic. EYES: Pupils equal round and reactive to light, extraocular movements intact, sclera anicteric, conjunctiva are normal. ENT: TMs normal, nares patent, oropharynx clear without exudates. Moist mucous membranes. NECK: Normal range of motion, supple without obvious mass or JVD. LUNGS: Breath sounds clear to auscultation bilaterally and equal. No wheezes rales or rhonchi. HEART: Regular rate and rhythm without murmurs, rubs or gallops. ABDOMEN: Soft, normoactive bowel sounds. No tenderness to palpation. No guarding, no rebound. No masses appreciated. EXTREMITIES: Normal range of motion, no pitting or edema. No clubbing or cyanosis. NEUROLOGICAL: Cranial nerves II through XII grossly intact. Her neck is supple. She has no photophobia. There is no meningismus. Normal speech, moving all extremities. PSYCH: Normal mood, normal affect. SKIN: Warm, Dry, normal turgor, no rashes or lesions noted. Course - Re-evaluation Re-evalutation: 12/29/18 20:21 Note: Given the fact that the patient had a headache with fever and photophobia and was given IV any next today in dialysis, we did proceed with a head CT (which was negative for any mass lesion or acute insult) followed by a spinal tap under fluoroscopy. The spinal tap cultures were sent. The fluid does look noninfected. Patient on reassessment does look well. She is hypertensive and we are giving her her nighttime medicines (clonidine, Norvasc, labetalol) and she will follow-up with her primary care doctor as well as renal doctors. I did leave word with Dr. Stokes (the patient's sales incentive analyst: Cell phone [phone] and gave a brief summary of today's results and gave my number for call back. - Vital Signs Vital signs: Temp Pulse Resp BP Pulse Ox 98.4 F 115 H 32 H 173/103 H 94 12/29/18 20:31 12/29/18 15:11 12/29/18 20:40 12/29/18 20:41 12/29/18 20:41 - Laboratory Result Diagrams: 12/29/18 18:20 12/29/18 18:20 Laboratory results interpreted by me: 12/29/18 12/29/18 18:20 18:20 RBC 3.51 L Hgb 11.7 L Hct 34.4 L MCV 98 H Monocytes % 13.2 H Sodium 134.0 L Chloride 94 L Creatinine 5.25 H Est GFR ( Amer) 12 L Est GFR (Non-Af Amer) 10 L Direct Bilirubin 0.7 H Total Protein 9.2 H - Diagnostic Test Radiology reviewed: Image reviewed, Reports reviewed - CT of the head shows nothing acute. Fluoroscopic LP performed by radiology. - EKG Interpretation by Me Rate: Tachycardia Rhythm: NSR - EKG shows sinus tachycardia with a ventricular rate of 106, left axis deviation, LVH. Discharge - Discharge Clinical Impression: Viral syndrome, Febrile illness, Hypertension Condition: Stable Disposition: HOME, SELF-CARE Instructions: Fever ([facility]), Viral Syndrome ([facility]) Additional Instructions: As we discussed, the spinal tap showed no evidence of meningitis. We did send spinal fluid cultures and they may take 2 days to come back. While blood cultures were sent today in the emergency room, you were given IV an tibiotics and dialysis and these may be obscured for that reason. It is unclear if you had gotten any blood cultures at dialysis before the antibiotics. Your chest x-ray showed no evidence of pneumonia. Your labs were otherwise okay. I want to take it easy over the next few days, rest, drink plenty of fluids and follow-up with dialysis as prescribed. I did leave word with Dr. Stokes on his cell phone given that you were given IV antibiotics and dialysis. I will give you a copy of today's lab tests with you when you leave here: Bring a copy of them to dialysis as well as to your primary care doctor. I would also follow-up at the [facility] (your primary care provider) tomorrow for repeat evaluation. Blood pressure was elevated tonight in the emergency room and you were given your nighttime medicines. I do want your blood pressure check tomorrow at the [facility]. Return to the emergency room for any worsening headache, or any concerns that she getting worse. Referrals: JASON BOOTH, [Primary Care Provider] - Follow up tomorrow
[2018-12-29 20:43] VITALS: BP 173/103
== END 2018-12-29 20:44 | disposition home or self-care (01) ==
LOC: ER 14:57
DX: R50.9 Fever, unspecified (principal); R51 Headache; I12.0 Hypertensive chronic kidney disease with stage 5 chronic kidney disease or end stage renal disease; N18.6 End stage renal disease; Z99.2 Dependence on renal dialysis; B34.9 Viral infection, unspecified
CPT/HCPCS: 93005; 99284; 96374; 96375; 36415; 87040; 87070 ×2; 87205; 87880; 85025; 89050; 82945; 84157; 80053; 83605; 87804; 71045; 77003; 62270; 70450; 93010; A9270 ×3; J1200; J0360; J2765

== ENCOUNTER 2019-07-20 08:44 | Emergency (ER) | payer MEDICARE, MEDICAID ==
[2019-07-20 10:05] LABS: HEMATOCRIT 27.9 % (36.0-47.0); HEMOGLOBIN 9.3 g/dL (12.0-15.5); MEAN CORPUSCULAR HEMOGLOBIN 31.9 pg (27.0-33.4); MEAN CORPUSCULAR HGB CONC 33.4 g/dL (32.0-36.0); MEAN CORPUSCULAR VOLUME 95 fl (80-97); PLATELET COUNT 140 10^3/uL (150-450); RED BLOOD COUNT 2.93 10^6/uL (3.72-5.28); RED CELL DISTRIBUTION WIDTH 14.2 % (11.5-14.0); WHITE BLOOD COUNT 5.5 10^3/uL (4.0-10.5)
[2019-07-20 10:13] LABS: APPEARANCE,URINE CLEAR; BILIRUBIN,URINE NEGATIVE (NEGATIVE); COLOR,URINE YELLOW; GLUCOSE, URINE NEGATIVE (NEGATIVE); KETONES,URINE NEGATIVE (NEGATIVE); LEUKOCYTE ESTERASE,URINE NEGATIVE (NEGATIVE); NITRITE,URINE NEGATIVE (NEGATIVE); PROTEIN,URINE 100 mg/dL (NEGATIVE); URINE SPECIFIC GRAVITY 1.013; UROBILINOGEN,URINE NEGATIVE mg/dL (<2.0)
[2019-07-20 10:26] LABS: ABSOLUTE LYMPHOCYTES# (MANUAL) 0.3 10^3/uL (0.5-4.7); ABSOLUTE MONOCYTES # (MANUAL) 0.1 10^3/uL (0.1-1.4); BAND NEUTROPHILS % (MANUAL) 1 % (3-5); BASOPHILS % (MANUAL) 0 % (0-2); EOSINOPHILS % (MANUAL) 1 % (0-6); LYMPHOCYTES % (MANUAL) 5 % (13-45); MONOCYTES % (MANUAL) 2 % (3-13); SEGMENTED NEUTROPHILS % (MAN) 90 % (42-78); TOTAL CELLS COUNTED 100
[2019-07-20 10:27] LABS: ALBUMIN 3.3 g/dL (3.5-5.0); ALKALINE PHOSPHATASE 81 U/L (38-126); ANION GAP 9 (5-19); ANISOCYTOSIS SLIGHT; ASPARTATE AMINO TRANSFERASE 23 U/L (14-36); BILIRUBIN,DIRECT 0.2 mg/dL (0.0-0.4); BILIRUBIN,TOTAL 0.6 mg/dL (0.2-1.3); BLOOD UREA NITROGEN 39 mg/dL (7-20); CALCIUM 8.4 mg/dL (8.4-10.2); CARBON DIOXIDE 20 mmol/L (22-30); CHLORIDE 109 mmol/L (98-107); CREATINE KINASE 67 U/L (30-135); GLUCOSE 87 mg/dL (75-110); PLATELET COMMENT DECREASED; POTASSIUM 4.3 mmol/L (3.6-5.0); TOTAL PROTEIN 6.4 g/dL (6.3-8.2)
--- NOTE | 2019-07-20 10:46 | ER Document Report ---
Entered by ROBERT BROOKS SCRIBE 07/20/19 0929 Acting as scribe for:JIGAR LEE MD ED General - General Chief Complaint: Post Surgical Bleeding Stated Complaint: POST OP BLEEDING Time Seen by Provider: 07/20/19 09:12 Primary Care Provider: JASON BOOTH DO [Primary Care Provider] - Follow up as needed Mode of Arrival: Ambulatory Information source: Patient Notes: 29-year-old female status post right kidney transplant 4 days ago, discharged yesterday, that presents today with complaints of "drainage from the wound". Patient had the kidney placed in her right lower abdomen. Patient states she woke up just before 8 AM this morning to go to the bathroom when she noticed this drainage. Patient states the drainage was "like watery blood". Patient states she feels like the incision and surrounding area are hot to the touch as well. Patient states she normally takes her blood pressure medications at 8 AM but after noticing this discharge she forgot to take them this morning before coming in. Patient reports that she was discharged home with a blood pressure cuff and she states that her pressures "normally fluctuate". Patient states last night her blood pressure was 159/??. Patient denies any fevers. On arrival the patient's blood pressure is 214/125. She states that her blood pressure has been running in the 150-160 range most of the time since she was discharged from the hospital. The patient did take all of her morning medications here in the emergency room after she got here and we saw what her blood pressure was. TRAVEL OUTSIDE OF THE [place] IN LAST 30 DAYS: No - Related Data Allergies/Adverse Reactions: No Known Allergies Allergy (Verified 07/20/19 10:54) Home Medications: clonidine 0.2 BID, hydralazine 500mg TID, envarsus 8mg daily, envarsus 2mg daily, prednisone 5mg daily, valganciclovir 450mg daily, bactrim 400mg daily, nystatin 100,000 units 4 times daily, pepcid 20mg daily, norvasc 10mg daily, labetalol 300mg daily, colase 100mg BID, senna-lax 8.6mg BID, norco 5-325 PRN Past Medical History - General Information source: Patient - Social History Smoking Status: Never Smoker Cigarette use (# per day): No Chew tobacco use (# tins/day): No Frequency of alcohol use: None Drug Abuse: None Family History: Reviewed & Not Pertinent, DM, Hypertension Patient has suicidal ideation: No Patient has homicidal ideation: No - Past Medical History Cardiac Medical History: Reports: Hx Hypertension Renal/ Medical History: Reports: Other - ESRD w/ a history of hemodialysis prior to kidney transplant on 07/15/19 Past Surgical History: Reports: Hx Section - x3, Hx Vascular Surgery - L arm dialysis fistula, Other - Kidney transplant 07/15/2019, placed in right lower abdomen. - Immunizations Hx Diphtheria, Pertussis, Tetanus Vaccination: Yes Hx Pneumococcal Vaccination: 09/30/00 Physical Exam - Vital signs Vitals: Temp Pulse Resp BP Pulse Ox 99.0 F 79 14 214/125 H 99 07/20/19 08:55 07/20/19 08:55 07/20/19 08:55 07/20/19 08:55 07/20/19 08:55 - Notes Notes: Physical Exam: General: Alert, appears somewhat uncomfortable which is expected with recent kidney transplant surgery. HEENT: Normocephalic. Atraumatic. PERRL. Extraocular movements intact. Oropharynx clear. Neck: Supple. Non-tender. Respiratory: No respiratory distress. Clear and equal breath sounds bilaterally. Cardiovascular: Regular rate and rhythm. Abdominal: Fresh stapled vertical incision in right lower quadrant consistent with recent right kidney transplant. There is faint erythema surrounding the upper half of the incision. No active drainage. Gauze that was placed by the nursing staff was removed and there is some discharge consistent with serosanguineous fluid on the gauze. There is slight increased warmth around the incision when compared to the rest of the abdominal wall skin. No distension. Normal Bowel Sounds. Back: No gross abnormalities. Extremities: Moves all four extremities. Upper extremities: Normal inspection. Normal ROM. Lower extremities: Normal inspection. No edema. Normal ROM. Neurological: Normal cognition. AAOx4. Normal speech. Psychological: Normal affect. Normal Mood. Skin: See abdominal exam Course - Re-evaluation Re-evalutation: 07/20/19 13:25 Patient is very anxious about going back to [place], concerned about who is going to take care of her children. Her blood pressure was starting to come down into the 180 range, it is gone back up to 190 with her anxiety. She will be given Ativan 0.5 mg IV to see if this will help. 07/20/19 13:46 Transport is here to take the patient to [facility]. Blood pressure remains elevated, however she is stable for transfer. When I spoke with her transplant doctor previously, he states her blood pressure is always high, it was high the entire time she was in the hospital and he was not concerned about the blood pressures she was running here in the emergency room after it came down to the 180-190 range. - Vital Signs Vital signs: Temp Pulse Resp BP Pulse Ox 98.4 F 79 24 H 184/104 H 100 07/20/19 11:10 07/20/19 08:55 07/20/19 11:08 07/20/19 11:08 07/20/19 11:08 - Laboratory Result Diagrams: 07/20/19 09:43 07/20/19 09:43 Laboratory results interpreted by me: 07/20/19 07/20/19 07/20/19 09:16 09:43 09:43 RBC 2.93 L Hgb 9.3 L Hct 27.9 L RDW 14.2 H Plt Count 140 L Seg Neuts % (Manual) 90 H Band Neutrophils % 1 L Lymphocytes % (Manual) 5 L Monocytes % (Manual) 2 L Abs Lymphs (Manual) 0.3 L Chloride 109 H Carbon Dioxide 20 L BUN 39 H Creatinine 2.20 H Est GFR ( Amer) 32 L Est GFR (MDRD) Non-Af 26 L Albumin 3.3 L Urine Protein 100 H Urine Blood MODERATE H - EKG Interpretation by Me EKG shows normal: Sinus rhythm, [place], Intervals, QRS Complexes, ST-T Waves Rate: Normal - 97 Rhythm: NSR [place]/QRS: Left axis deviation P Waves: LAE When compared to previous EKG there are: No significant change - Consults Dr. Navarro Time consulted: 11:20 Consulted provider: other - Will accept at [facility] Discharge - Discharge Clinical Impression: Poorly-controlled hypertension, Elevated troponin, Renal transplant, status post Postoperative surgical complication involving skin Qualifiers: Surgical complication type: unspecified Procedure type: non-dermatologic Qualified Code(s): L76.82 - Other postprocedural complications of skin and subcutaneous tissue Condition: Stable Disposition: [facility] Referrals: JASON BOOTH DO [Primary Care Provider] - Follow up as needed Scribe Attestation: 07/20/19 11:35 I personally performed the services described in the documentation, reviewed and edited the documentation which was dictated to the scribe in my presence, and it accurately records my words and actions. I personally performed the services described in the documentation, reviewed and edited the documentation which was dictated to the scribe in my presence, and it accurately records my words and actions.
[2019-07-20 11:10] VITALS: BP 184/104
[2019-07-20] MEDS ORDERED: LORAZEPAM INJ 2 MG/1 ML VIAL IV ONE (13:25)
--- NOTE | 2019-07-20 16:56 | EKG REPORT ---
SEVERITY:- BORDERLINE ECG - SINUS RHYTHM PROBABLE LEFT ATRIAL ABNORMALITY LEFT AXIS DEVIATION : Confirmed by: Gavi Rios MD 20-Jul-2019 16:55:43
== END 2019-07-20 13:55 | disposition short-term general hospital (02) ==
LOC: ER 08:44
DX: L76.82 Other postprocedural complications of skin and subcutaneous tissue (principal); Y83.0 Surgical operation with transplant of whole organ as the cause of abnormal reaction of the patient, or of later complication, without mention of misadventure at the time of the procedure; I10 Essential (primary) hypertension; Z79.899 Other long term (current) drug therapy; R79.89 Other specified abnormal findings of blood chemistry; F41.9 Anxiety disorder, unspecified; Z94.0 Kidney transplant status; Z79.52 Long term (current) use of systemic steroids
CPT/HCPCS: 93005; 99284; 96374; 36415; 87040; 82550; 85025; 80053; 81001; 84484; 93010; J2060

== ENCOUNTER → 2019-12-22 | Outpatient (CLI) | payer MEDICARE, MEDICAID ==
[2019-12-22 09:15] LABS: ABSOLUTE EOSINOPHILS # (AUTO) 0.2 10^3/uL (0.0-0.6); ABSOLUTE LYMPHOCYTES (AUTO) 0.7 10^3/uL (0.5-4.7); ABSOLUTE MONOCYTES (AUTO) 0.6 10^3/uL (0.1-1.4); BASOPHILS % (AUTO) 1.2 % (0-2); EOSINOPHILS % (AUTO) 5.4 % (0-6); LYMPHOCYTES % (AUTO) 19.7 % (13-45); MEAN CORPUSCULAR HGB CONC 34.1 g/dL (32.0-36.0); MEAN CORPUSCULAR VOLUME 91 fl (80-97); MONOCYTES % (AUTO) 16.8 % (3-13); PLATELET COUNT 294 10^3/uL (150-450); RED BLOOD COUNT 4.18 10^6/uL (3.72-5.28); RED CELL DISTRIBUTION WIDTH 12.9 % (11.5-14.0); SEGMENTED NEUTROPHILS % (AUTO) 56.9 % (42-78); TOTAL CELLS COUNTED % (AUTO) 100 %; WHITE BLOOD COUNT 3.6 10^3/uL (4.0-10.5)
[2019-12-22 09:28] LABS: ANION GAP 9 (5-19); BLOOD UREA NITROGEN 16 mg/dL (7-20); CALCIUM 9.3 mg/dL (8.4-10.2); CARBON DIOXIDE 22 mmol/L (22-30); CHLORIDE 105 mmol/L (98-107); GLUCOSE 107 mg/dL (75-110); POTASSIUM 4.5 mmol/L (3.6-5.0)
[2019-12-22 10:31] LABS: APPEARANCE,URINE CLEAR; BILIRUBIN,URINE NEGATIVE (NEGATIVE); COLOR,URINE YELLOW; GLUCOSE, URINE NEGATIVE (NEGATIVE); KETONES,URINE NEGATIVE (NEGATIVE); LEUKOCYTE ESTERASE,URINE NEGATIVE (NEGATIVE); NITRITE,URINE NEGATIVE (NEGATIVE); PROTEIN,URINE >=500 mg/dL (NEGATIVE); URINE SPECIFIC GRAVITY 1.013; UROBILINOGEN,URINE NEGATIVE mg/dL (<2.0)
== END ==
LOC: OD 08:19
PROVIDERS: ATTEND Surgery
DX: N18.9 Chronic kidney disease, unspecified (principal); Z94.0 Kidney transplant status
CPT/HCPCS: 36415; 80048; 80197; 81001; 83735; 84100; 85025

== ENCOUNTER → 2020-01-19 | Outpatient (CLI) | payer MEDICARE, MEDICAID ==
[2020-01-19 10:01] LABS: APPEARANCE,URINE CLEAR; BILIRUBIN,URINE NEGATIVE (NEGATIVE); COLOR,URINE YELLOW; GLUCOSE, URINE 150 mg/dL (NEGATIVE); KETONES,URINE NEGATIVE (NEGATIVE); LEUKOCYTE ESTERASE,URINE NEGATIVE (NEGATIVE); NITRITE,URINE NEGATIVE (NEGATIVE); PROTEIN,URINE >=500 mg/dL (NEGATIVE); URINE SPECIFIC GRAVITY 1.023; UROBILINOGEN,URINE NEGATIVE mg/dL (<2.0)
[2020-01-19 10:07] LABS: ABSOLUTE EOSINOPHILS # (AUTO) 0.1 10^3/uL (0.0-0.6); ABSOLUTE LYMPHOCYTES (AUTO) 1.5 10^3/uL (0.5-4.7); ABSOLUTE MONOCYTES (AUTO) 0.5 10^3/uL (0.1-1.4); ABSOLUTE NEUT (AUTO) 5.4 10^3/uL (1.7-8.2); BASOPHILS % (AUTO) 0.6 % (0-2); HEMOGLOBIN 13.7 g/dL (12.0-15.5); LYMPHOCYTES % (AUTO) 20.5 % (13-45); MEAN CORPUSCULAR HEMOGLOBIN 31.6 pg (27.0-33.4); MEAN CORPUSCULAR HGB CONC 34.3 g/dL (32.0-36.0); MEAN CORPUSCULAR VOLUME 92 fl (80-97); MONOCYTES % (AUTO) 6.4 % (3-13); PLATELET COUNT 384 10^3/uL (150-450); RED BLOOD COUNT 4.35 10^6/uL (3.72-5.28); RED CELL DISTRIBUTION WIDTH 13.4 % (11.5-14.0); SEGMENTED NEUTROPHILS % (AUTO) 71.5 % (42-78); TOTAL CELLS COUNTED % (AUTO) 100 %; WHITE BLOOD COUNT 7.5 10^3/uL (4.0-10.5)
[2020-01-19 10:10] LABS: ANION GAP 8 (5-19); BLOOD UREA NITROGEN 15 mg/dL (7-20); CALCIUM 9.4 mg/dL (8.4-10.2); CARBON DIOXIDE 21 mmol/L (22-30); CHLORIDE 104 mmol/L (98-107); GLUCOSE 254 mg/dL (75-110); PHOSPHORUS 2.8 mg/dL (2.5-4.5); POTASSIUM 4.6 mmol/L (3.6-5.0)
[2020-01-19 10:15] LABS: URINE CREATININE 167.1 mg/dL (16-327)
[2020-01-19 10:58] LABS: UR PRO/CREAT RATIO RESULT 3.4 mg/mg (0.0-0.2); URINE PROTEIN 565.9 mg/dL (<12)
== END ==
LOC: OD 08:37
PROVIDERS: ATTEND Surgery
DX: N18.9 Chronic kidney disease, unspecified (principal); Z94.0 Kidney transplant status
CPT/HCPCS: 36415; 80048; 80197; 81001; 82570; 83735; 83970; 84100; 84156; 85025; 87496; 87799

== ENCOUNTER → 2020-02-16 | Outpatient (CLI) | payer MEDICARE, MEDICAID ==
[2020-02-16 09:57] LABS: ABSOLUTE BASOPHILS # (AUTO) 0.1 10^3/uL (0.0-0.2); ABSOLUTE EOSINOPHILS # (AUTO) 0.2 10^3/uL (0.0-0.6); ABSOLUTE LYMPHOCYTES (AUTO) 1.8 10^3/uL (0.5-4.7); ABSOLUTE MONOCYTES (AUTO) 0.6 10^3/uL (0.1-1.4); ABSOLUTE NEUT (AUTO) 7.7 10^3/uL (1.7-8.2); BASOPHILS % (AUTO) 0.6 % (0-2); EOSINOPHILS % (AUTO) 1.5 % (0-6); HEMATOCRIT 39.3 % (36.0-47.0); HEMOGLOBIN 13.2 g/dL (12.0-15.5); LYMPHOCYTES % (AUTO) 17.6 % (13-45); MEAN CORPUSCULAR HEMOGLOBIN 30.7 pg (27.0-33.4); MEAN CORPUSCULAR HGB CONC 33.7 g/dL (32.0-36.0); MEAN CORPUSCULAR VOLUME 91 fl (80-97); MONOCYTES % (AUTO) 5.5 % (3-13); PLATELET COUNT 402 10^3/uL (150-450); RED BLOOD COUNT 4.31 10^6/uL (3.72-5.28); RED CELL DISTRIBUTION WIDTH 13.6 % (11.5-14.0); SEGMENTED NEUTROPHILS % (AUTO) 74.8 % (42-78); TOTAL CELLS COUNTED % (AUTO) 100 %; WHITE BLOOD COUNT 10.3 10^3/uL (4.0-10.5)
[2020-02-16 10:04] LABS: APPEARANCE,URINE SLIGHTLY-CLOUDY; BILIRUBIN,URINE NEGATIVE (NEGATIVE); COLOR,URINE YELLOW; GLUCOSE, URINE NEGATIVE (NEGATIVE); KETONES,URINE NEGATIVE (NEGATIVE); LEUKOCYTE ESTERASE,URINE NEGATIVE (NEGATIVE); NITRITE,URINE NEGATIVE (NEGATIVE); PROTEIN,URINE >=500 mg/dL (NEGATIVE); URINE SPECIFIC GRAVITY 1.016; UROBILINOGEN,URINE NEGATIVE mg/dL (<2.0)
[2020-02-16 10:19] LABS: ANION GAP 10 (5-19); BLOOD UREA NITROGEN 16 mg/dL (7-20); CALCIUM 9.1 mg/dL (8.4-10.2); CARBON DIOXIDE 23 mmol/L (22-30); CHLORIDE 103 mmol/L (98-107); GLUCOSE 146 mg/dL (75-110); PHOSPHORUS 3.3 mg/dL (2.5-4.5); POTASSIUM 4.4 mmol/L (3.6-5.0)
== END ==
LOC: OD 08:53
PROVIDERS: ATTEND Surgery
DX: N18.9 Chronic kidney disease, unspecified (principal); Z94.0 Kidney transplant status
CPT/HCPCS: 36415; 80048; 80197; 81001; 83735; 84100; 85025; 87496; 87799

== ENCOUNTER → 2020-03-03 | Outpatient (CLI) | payer MEDICARE, MEDICAID ==
[2020-03-03 09:23] LABS: APPEARANCE,URINE SLIGHTLY-CLOUDY; BILIRUBIN,URINE NEGATIVE (NEGATIVE); COLOR,URINE YELLOW; GLUCOSE, URINE NEGATIVE (NEGATIVE); KETONES,URINE NEGATIVE (NEGATIVE); LEUKOCYTE ESTERASE,URINE NEGATIVE (NEGATIVE); NITRITE,URINE NEGATIVE (NEGATIVE); PROTEIN,URINE 100 mg/dL (NEGATIVE); URINE SPECIFIC GRAVITY 1.016; UROBILINOGEN,URINE NEGATIVE mg/dL (<2.0)
[2020-03-03 10:22] LABS: ABSOLUTE BASOPHILS # (AUTO) 0.1 10^3/uL (0.0-0.2); ABSOLUTE LYMPHOCYTES (AUTO) 1.8 10^3/uL (0.5-4.7); ABSOLUTE MONOCYTES (AUTO) 0.8 10^3/uL (0.1-1.4); ABSOLUTE NEUT (AUTO) 11.4 10^3/uL (1.7-8.2); BASOPHILS % (AUTO) 0.5 % (0-2); EOSINOPHILS % (AUTO) 0.3 % (0-6); HEMATOCRIT 38.5 % (36.0-47.0); HEMOGLOBIN 13.2 g/dL (12.0-15.5); MEAN CORPUSCULAR HEMOGLOBIN 30.9 pg (27.0-33.4); MEAN CORPUSCULAR HGB CONC 34.2 g/dL (32.0-36.0); MEAN CORPUSCULAR VOLUME 90 fl (80-97); MONOCYTES % (AUTO) 5.4 % (3-13); PLATELET COUNT 363 10^3/uL (150-450); RED BLOOD COUNT 4.28 10^6/uL (3.72-5.28); RED CELL DISTRIBUTION WIDTH 13.6 % (11.5-14.0); SEGMENTED NEUTROPHILS % (AUTO) 80.8 % (42-78); TOTAL CELLS COUNTED % (AUTO) 100 %; WHITE BLOOD COUNT 14.1 10^3/uL (4.0-10.5)
[2020-03-03 10:50] LABS: ANION GAP 8 (5-19); BLOOD UREA NITROGEN 15 mg/dL (7-20); CARBON DIOXIDE 26 mmol/L (22-30); CHLORIDE 101 mmol/L (98-107); GLUCOSE 137 mg/dL (75-110)
[2020-03-03 10:52] LABS: CALCIUM 8.7 mg/dL (8.4-10.2); POTASSIUM 4.5 mmol/L (3.6-5.0)
== END ==
LOC: OD 08:35
PROVIDERS: ATTEND Surgery
DX: N18.9 Chronic kidney disease, unspecified (principal); Z94.0 Kidney transplant status
CPT/HCPCS: 36415; 80048; 80197; 81001; 84100; 85025

== ENCOUNTER → 2020-05-24 | Outpatient (CLI) | payer MEDICARE, MEDICAID ==
--- NOTE | 2020-05-24 22:13 | XCELERA REPORT ---
[address] [address] Transthoracic Echocardiogram Report Name: DANE MATTHEW Age: 30 yrs Gender: Female : 1990 Patient Status: Outpatient Patient Location: Study Date: 05/24/2020 11:22 AM History: Renal trasnplant Chest pain Height: 65 in Weight: 245 lb BSA: 2.2 m2 Reason For Study: ISCHEMIC HEART DISEASE Previous Evaluation: A previous study was performed on 04/10/2017 LVEF 60%. History: Renal Transplant. Chest pain. HTN. Ordering Physician: PATRICA SWARTZ Performed By: Chris Swift Interpretation Summary No significant valvular regurgitation or stenosis noted. The Ejection Fraction estimate is 60-65% The right ventricle is normal in size and function. No significant valvular regurgitation or stenosis noted. There is no pericardial effusion. MMode/2D Measurements & Calculations RVDd: 2.6 cm LVIDd: 3.9 cm FS: 47.2 % Ao root diam: 3.0 cm IVSd: 1.5 cm LVIDs: 2.1 cm EDV(Teich): 67.9 ml Ao root area: 6.8 cm2 LVPWd: 1.6 cm ESV(Teich): 14.2 ml LA dimension: 3.8 cm EF(Teich): 79.1 % Doppler Measurements & Calculations MV E max dominga: MV P1/2t max dominga: Ao V2 max: LV V1 max P.8 cm/sec 69.5 cm/sec 155.3 cm/sec 6.3 mmHg MV A max dominga: MV P1/2t: 45.4 msec Ao max PG: LV V1 max: 76.2 cm/sec MVA(P1/2t): 4.8 cm2 9.6 mmHg 125.4 cm/sec MV E/A: 0.80 MV dec slope: 448.1 cm/sec2 MV dec time: 0.24 sec PA V2 max: MV P1/2t-pr_phl: 94.8 cm/sec 45.4 msec PA max P.6 mmHg Left Ventricle The left ventricle is grossly normal size. There is severe concentric left ventricular hypertrophy. Left ventricular systolic function is normal. The Ejection Fraction estimate is 60-65%. Doppler measurements suggest impaired left ventricular relaxation, which is associated with grade I/IV or mild diastolic dysfunction. Regional wall motion abnormalities cannot be excluded due to limited visualization. Right Ventricle The right ventricle is normal in size and function. Atria The right atrium is normal. The left atrium is borderline dilated. The interatrial septum is intact with no evidence for an atrial septal defect. Mitral Valve The mitral valve is grossly normal. There is no evidence of mitral valve prolapse. There is no mitral valve stenosis. There is no mitral regurgitation noted. Aortic Valve The aortic valve is trileaflet. The aortic valve opens well. The aortic valve is normal in structure and function. There is no aortic valve stenosis. No aortic regurgitation is present. Tricuspid Valve The tricuspid valve is normal in structure and function. There is a trace amount of tricuspid regurgitation. Tricuspid regurgitation jet envelope not well defined to measure RV systolic pressure accurately. Pulmonic Valve The pulmonic valve is not well visualized. There is no pulmonic valvular stenosis. There is no pulmonic valvular regurgitation. Great Vessels The aortic root is normal size. The inferior vena cava appeared small and collapsed with respiration (RAP 0-5 mmHg). Effusions There is no pericardial effusion. : PATRICA SWARTZ Anil
== END ==
LOC: SP 11:01
PROVIDERS: ATTEND Internal Medicine
DX: I25.9 Chronic ischemic heart disease, unspecified (principal); I10 Essential (primary) hypertension
CPT/HCPCS: 93306

== ENCOUNTER → 2020-09-05 | Outpatient (CLI) | payer MEDICARE, MEDICAID ==
[2020-09-05 17:47] LABS: ABSOLUTE BASOPHILS # (AUTO) 0.1 10^3/uL (0.0-0.2); ABSOLUTE EOSINOPHILS # (AUTO) 0.1 10^3/uL (0.0-0.6); ABSOLUTE LYMPHOCYTES (AUTO) 2.3 10^3/uL (0.5-4.7); ABSOLUTE MONOCYTES (AUTO) 0.9 10^3/uL (0.1-1.4); ABSOLUTE NEUT (AUTO) 10.3 10^3/uL (1.7-8.2); BASOPHILS % (AUTO) 0.5 % (0-2); EOSINOPHILS % (AUTO) 0.4 % (0-6); HEMATOCRIT 35.9 % (36.0-47.0); HEMOGLOBIN 12.1 g/dL (12.0-15.5); LYMPHOCYTES % (AUTO) 16.6 % (13-45); MEAN CORPUSCULAR HEMOGLOBIN 29.5 pg (27.0-33.4); MEAN CORPUSCULAR HGB CONC 33.7 g/dL (32.0-36.0); MEAN CORPUSCULAR VOLUME 88 fl (80-97); MONOCYTES % (AUTO) 6.8 % (3-13); PLATELET COUNT 457 10^3/uL (150-450); RED BLOOD COUNT 4.09 10^6/uL (3.72-5.28); RED CELL DISTRIBUTION WIDTH 13.8 % (11.5-14.0); SEGMENTED NEUTROPHILS % (AUTO) 75.7 % (42-78); TOTAL CELLS COUNTED % (AUTO) 100 %; WHITE BLOOD COUNT 13.6 10^3/uL (4.0-10.5)
[2020-09-05 18:05] LABS: ANION GAP 8 (5-19); BLOOD UREA NITROGEN 25 mg/dL (7-20); CARBON DIOXIDE 20 mmol/L (22-30); CHLORIDE 108 mmol/L (98-107); GLUCOSE 100 mg/dL (75-110); PHOSPHORUS 3.4 mg/dL (2.5-4.5); POTASSIUM 4.4 mmol/L (3.6-5.0)
[2020-09-05 18:06] LABS: APPEARANCE,URINE SLIGHTLY-CLOUDY; BILIRUBIN,URINE NEGATIVE (NEGATIVE); COLOR,URINE YELLOW; GLUCOSE, URINE NEGATIVE (NEGATIVE); KETONES,URINE NEGATIVE (NEGATIVE); LEUKOCYTE ESTERASE,URINE NEGATIVE (NEGATIVE); NITRITE,URINE NEGATIVE (NEGATIVE); PROTEIN,URINE >=500 mg/dL (NEGATIVE); URINE SPECIFIC GRAVITY 1.025; UROBILINOGEN,URINE NEGATIVE mg/dL (<2.0)
[2020-09-06 09:44] LABS: URINE CREATININE 163.2 mg/dL (16-327)
[2020-09-06 11:27] LABS: UR PRO/CREAT RATIO RESULT 5.7 mg/mg (0.0-0.2); URINE PROTEIN 928.4 mg/dL (<12)
[2020-09-07 07:13] LABS: HEPATITS B SURFACE ANTIGEN Negative (Negative)
[2020-09-09 07:25] LABS: CMV DNA PCR QUANT Negative (Negative)
[2020-09-10 10:52] LABS: BK PCR QNT Negative copies/mL (Negative)
== END ==
LOC: OD 16:43
PROVIDERS: ATTEND Surgery
DX: Z48.22 Encounter for aftercare following kidney transplant (principal); N18.9 Chronic kidney disease, unspecified; Z94.0 Kidney transplant status
CPT/HCPCS: 36415; 80048; 80197; 81001; 82043; 82570; 83036; 83735; 83970; 84100; 84156; 85025; 87340; 87496; 87799

== ENCOUNTER → 2020-10-27 | Outpatient (CLI) | payer MEDICARE, MEDICAID ==
[2020-10-27 11:14] LABS: ABSOLUTE BASOPHILS # (AUTO) 0.1 10^3/uL (0.0-0.2); ABSOLUTE EOSINOPHILS # (AUTO) 0.1 10^3/uL (0.0-0.6); ABSOLUTE LYMPHOCYTES (AUTO) 1.6 10^3/uL (0.5-4.7); ABSOLUTE MONOCYTES (AUTO) 0.4 10^3/uL (0.1-1.4); ABSOLUTE NEUT (AUTO) 6.5 10^3/uL (1.7-8.2); BASOPHILS % (AUTO) 0.8 % (0-2); EOSINOPHILS % (AUTO) 0.7 % (0-6); LYMPHOCYTES % (AUTO) 18.4 % (13-45); MEAN CORPUSCULAR HEMOGLOBIN 28.6 pg (27.0-33.4); MEAN CORPUSCULAR HGB CONC 32.5 g/dL (32.0-36.0); MEAN CORPUSCULAR VOLUME 88 fl (80-97); MONOCYTES % (AUTO) 4.8 % (3-13); PLATELET COUNT 434 10^3/uL (150-450); RED BLOOD COUNT 4.55 10^6/uL (3.72-5.28); SEGMENTED NEUTROPHILS % (AUTO) 75.3 % (42-78); TOTAL CELLS COUNTED % (AUTO) 100 %; WHITE BLOOD COUNT 8.6 10^3/uL (4.0-10.5)
[2020-10-27 11:22] LABS: APPEARANCE,URINE CLEAR; BILIRUBIN,URINE NEGATIVE (NEGATIVE); COLOR,URINE YELLOW; GLUCOSE, URINE NEGATIVE (NEGATIVE); KETONES,URINE NEGATIVE (NEGATIVE); LEUKOCYTE ESTERASE,URINE NEGATIVE (NEGATIVE); NITRITE,URINE NEGATIVE (NEGATIVE); PROTEIN,URINE >=500 mg/dL (NEGATIVE); URINE SPECIFIC GRAVITY 1.016; UROBILINOGEN,URINE NEGATIVE mg/dL (<2.0)
[2020-10-27 11:34] LABS: ANION GAP 6 (5-19); BLOOD UREA NITROGEN 18 mg/dL (7-20); CALCIUM 9.4 mg/dL (8.4-10.2); CARBON DIOXIDE 23 mmol/L (22-30); CHLORIDE 106 mmol/L (98-107); GLUCOSE 114 mg/dL (75-110); PHOSPHORUS 3.4 mg/dL (2.5-4.5); POTASSIUM 4.8 mmol/L (3.6-5.0)
== END ==
LOC: OD 10:39
PROVIDERS: ATTEND Surgery
DX: N18.9 Chronic kidney disease, unspecified (principal); Z94.0 Kidney transplant status
CPT/HCPCS: 36415; 80048; 80197; 81001; 83735; 84100; 85025